=== PATIENT | male | born 1945 | race Caucasian/White ===

== ENCOUNTER 2018-06-15 13:14 | Emergency (ER) | payer MEDICARE ==
[2018-06-15 13:30] VITALS: BP 131/84; PULSE 98; RESP 18; TEMP 98.6
[2018-06-15] MEDS ORDERED: KETOROLAC 30 MG/ML 1 ML VIAL IM STA (14:12)
--- NOTE | 2018-06-15 14:16 | ED ---
Lower Extremity Injury HPI - General Chief Complaint: Extremity Injury, Lower Stated Complaint: leg pain Time Seen by Provider: 06/15/18 13:42 Source: patient Mode of arrival: ambulatory Limitations: no limitations - History of Present Illness Initial Comments: 73-year-old male past medical history of HTN, previous patella fracture in 1972 present today for chief complaint right knee pain. Patient states that he has had increasing right knee pain for the past month, he denies any injury, he denies any swelling, any repetitive movements no warmth or redness or tenderness to palpation of the knee he denies any fever, chills or night sweats. Patient states that he is able to fully range of the right knee without any difficulty however the pain increases with weight bearing and ambulation. Patient states that he has on-and-off pain throughout the night. Patient denies any recent surgeries or dental infections. Patient takes that she takes Tylenol which helps alleviate the pain somewhat. Patient has not an evaluation for than right knee pain or imaging recently. Remainder of ROS negative, patient appears well. Vital signs stable upon arrival. - Related Data Previous Rx's Medication Instructions Recorded Naproxen [Naprosyn] 500 mg PO Q12HR PRN 10 Days #20 tab 06/15/18 Allergies Allergy/AdvReac Type Severity Reaction Status Date / Time No Known Allergies Allergy Verified 06/15/18 13:29 Review of Systems ROS Statement: Those systems with pertinent positive or pertinent negative responses have been documented in the HPI. ROS Other: All systems not noted in ROS Statement are negative. Constitutional: Denies: fever, chills Eyes: Denies: eye pain ENT: Denies: ear pain, throat pain Respiratory: Denies: cough, dyspnea, wheezes, hemoptysis, stridor Cardiovascular: Denies: chest pain, palpitations, dyspnea on exertion Endocrine: Denies: fatigue Gastrointestinal: Denies: abdominal pain, nausea, vomiting, diarrhea, constipation Genitourinary: Denies: urgency, dysuria Musculoskeletal: Reports: arthralgia (right knee pain with ambulation). Denies : back pain Skin: Denies: rash, lesions Neurological: Denies: headache, weakness, numbness, paresthesias, confusion, abnormal gait Past Medical History Past Medical History: Hypertension Additional Past Medical History / Comment(s): fractured right knee cap History of Any Multi-Drug Resistant Organisms: None Reported Additional Past Surgical History / Comment(s): left ring finger surgery Past Psychological History: No Psychological Hx Reported Smoking Status: Former smoker Past Alcohol Use History: Daily Past Drug Use History: None Reported General Exam - General Exam Comments Initial Comments: General: The patient is awake and alert, in no distress, and does not appear acutely ill. Eye: Pupils are equal, round and reactive to light, extra-ocular movements are intact. No nystagmus. There is normal conjunctiva bilaterally. No signs of icterus. Ears, nose, mouth and throat: There are moist mucous membranes and no oral lesions. Cardiovascular: There is a regular rate and rhythm. No murmur, rub or gallop is appreciated. Respiratory: Lungs are clear to auscultation, respirations are non-labored, breath sounds are equal. No wheezes, stridor, rales, or rhonchi. Musculoskeletal: There is no erythema, warmth or soft tissue swelling noted of the right knee. These are equal in appearance bilaterally. Patient is able to fully range the right knee with flexion and extension. Patient denies any pain with these movements. There is palpable crepitus on examination. No noted laxity. Negative anterior and posterior drawer testing. Strength 5/5 at the hip, knees and ankles bilaterally. Sensation intact of the lower extremity equally bilaterally. Dorsalis pedis and radial pulses equal bilaterally 2+. Extensor mechanism is intact. There is no palpable defects of the quadriceps tendon. Parents are soft and compressible. Noted foot drop. Patient complains of pain with ambulation however no noted gait abnormalities Neurological: A&O x 3. CN II-XII intact, There are no obvious motor or sensory deficits. Coordination appears grossly intact. Speech is normal. Skin: Skin is warm and dry and no rashes or lesions are noted. Psychiatric: Cooperative, appropriate mood & affect, normal judgment. Limitations: no limitations Course Vital Signs 06/15/18 13:26 Temperature 98.6 F Pulse Rate 98 Respiratory 18 Rate Blood Pressure 131/84 O2 Sat by Pulse 95 Oximetry Medical Decision Making - Medical Decision Making X-rays revealed no acute fracture dislocation the right knee there is moderate tricuspid mental arthritis grease in the medial compartment as well as a 1.5cm intra-articular loose body. At this time feel the intra-articular loose body is the cause of the pain in the right knee. There are no signs of symptoms concerning for septic joint this time. There is no noted effusion on x-ray. Findings discussed with Dr. Alvarado in detail who reviewed all imaging. At this time we feel patient is stable for discharge with orthopedic surgery follow-up. Patient was placed in a knee immobilizer, and given Rice instruction. In addition patient was given a prescription for Naprosyn for pain management. All findings were discussed with patient detail. He verbalized understanding. Patient is understanding that he has to make an appointment with orthopedic surgery in the next 1-2 days. Return parameters discussed in detail patient verbalizes understanding. Patient discharged in stable condition after discussing the case in detail with Dr. Alvarado. Disposition Clinical Impression: Right knee pain, Tricompartment osteoarthritis of right knee Disposition: HOME SELF-CARE Condition: Good Instructions: Osteoarthritis (ED) Additional Instructions: Please use medication as discussed. Please follow-up with family doctor in the next 2 days. Please see orthopedic surgery in the next week. Please return to emergency room if the symptoms increase or worsen or for any other concerns. Prescriptions: Naproxen [Naprosyn] 500 mg PO Q12HR PRN 10 Days #20 tab PRN Reason: Pain Is patient prescribed a controlled substance at d/c from ED?: No Referrals: Nacho Harmon MD [Primary Care Provider] - 1-2 days José Luis Rider DO [Doctor of Osteopathic Medicine] - 1-2 days Time of Disposition: 15:11
--- NOTE | 2018-06-15 14:45 | XR ---
EXAMINATION TYPE: XR knee complete RT DATE OF EXAM: 06/15/2018 CLINICAL HISTORY: Right knee pain for one month TECHNIQUE: Three views of the right knee are obtained. COMPARISON: None. FINDINGS: There is no acute fracture/dislocation evident in right knee. Tricompartmental spaces demo nstrate marginal osteophytes, joint space narrowing and subchondral sclerosis greatest within medial compartment with near [id number] articulation. Intra-articular 1.5 cm loose body is seen the anteri or aspect of the intercondylar notch. The overlying soft tissue appears unremarkable. Atherosclerosis is seen of the femoral artery and its branches. IMPRESSION: There is no acute fracture or dislocation in the right knee. Moderate tricompartmental a rthropathy greatest in the medial compartment and 1.5 cm intra-articular loose body.
== END 2018-06-15 15:31 | disposition home or self-care (01) ==
LOC: EC 13:14
DX: M17.11 Unilateral primary osteoarthritis, right knee (principal); Z87.81 Personal history of (healed) traumatic fracture; Z87.891 Personal history of nicotine dependence
CPT/HCPCS: 73562; 99283; 96372; L1830; J1885

== ENCOUNTER → 2018-09-06 | Outpatient (CLI) | payer MEDICARE ==
[2018-09-06 13:11] LABS: HCT 44.8 % (39.0-53.0); HGB 14.7 gm/dL (13.0-17.5); MCH 28.7 pg (25.0-35.0); MCHC 32.9 g/dL (31.0-37.0); MCV 87.3 fL (80.0-100.0); Mean Platelet Volume 7.2; Platelet Count 357 k/uL (150-450); RBC 5.13 m/uL (4.30-5.90); RDW 13.6 % (11.5-15.5)
[2018-09-06 13:20] LABS: INR 0.9 (<1.2); Partial Thromboplastin Time 22.5 sec (22.0-30.0); Prothrombin Time 9.5 sec (9.0-12.0)
[2018-09-06 13:27] LABS: Albumin 4.5 g/dL (3.5-5.0); Calcium 9.9 mg/dL (8.4-10.2); Potassium 5.3 mmol/L (3.5-5.1); Total Bilirubin 0.9 mg/dL (0.2-1.3); Total Protein 7.3 g/dL (6.3-8.2)
[2018-09-06 13:48] LABS: Appearance,Urine Clear (Clear); Bilirubin,Urine Negative (Negative); Blood,Urine Negative (Negative); Color,Urine Light Yellow; Glucose,Urine (UA) Negative (Negative); Ketones,Urine Negative (Negative); Leukocyte Esterase,Urine Negative (Negative); Nitrite,Urine Negative (Negative); Protein,Urine Negative (Negative); Specific Gravity,Urine 1.005 (1.001-1.035); Urobilinogen,Urine <2.0 mg/dL (<2.0)
== END | disposition home or self-care (01) ==
LOC: LABPAT 11:49
PROVIDERS: ATTEND Orthopaedic Surgery
DX: Z01.818 Encounter for other preprocedural examination (principal); Z01.812 Encounter for preprocedural laboratory examination
CPT/HCPCS: 80053; 81003; 85027; 85610; 85730; 87070; 93005

== ENCOUNTER 2018-10-04 07:00 | Inpatient (IN) | payer MEDICARE ==
[2018-09-28 09:27] VITALS: BMI 31.3
[~2018-10-04 07:00] MED LIST: ACETAMINOPHEN TAB 500 MG TAB PO ONE; DEXAMETHASONE SOD PHOSPHATE 10 MG/ML 1 ML VIAL IV ONE; LIDOCAINE 1% 20 ML VIAL (10MG/ML) FOR IV START INTRADERMA PRN; MELOXICAM 7.5 MG TAB PO ONE; ONDANSETRON 4 MG/2 ML VIAL IVP ONE; ROPIVACAINE 246.25 MG, EPINEPHrine 0.5 MG, KETOROLAC 30 MG, cloNIDine HCL/PF 80 MCG, WA... MISCELLANE ONE; TRANEXAMIC ACID 1,000 MG in SODIUM CHLORIDE 0.9% 100 ML IVPB ONE; ceFAZolin IN SWFI 2 GM/20 ML SYRINGE IVP ONE
[2018-10-04] MEDS: LACTATED RINGERS 1,000 ML IV SCH (08:03)
[2018-10-04] MEDS ORDERED: MIDAZOLAM 2 MG/2 ML VIAL IV ONE (08:16)
[2018-10-04] MEDS ORDERED: BISACODYL 10 MG SUPP RECTAL PRN (09:02)
[2018-10-04] MEDS ORDERED: DIAZEPAM 5 MG TAB PO PRN (09:02)
[2018-10-04] MEDS ORDERED: HYDROcodone/APAP 5-325MG 1 EACH TAB PO PRN ×2 (09:02)
[2018-10-04] MEDS ORDERED: NA PHOS,M-B/NA PHOS,DI-BA 133 ML ENEMA RECTAL PRN (09:02)
[2018-10-04] MEDS ORDERED: HYDROmorphone 0.5 MG/0.5 ML SYRINGE IVP PRN ×3 (09:02)
[2018-10-04] MEDS ORDERED: hydrOXYzine PAMOATE 25 MG CAP PO PRN (09:02)
[2018-10-04] MEDS ORDERED: NALOXONE 0.4 MG/ML 1 ML VIAL IV PRN (09:02)
[2018-10-04] MEDS ORDERED: ONDANSETRON 4 MG/2 ML VIAL IVP PRN (09:02)
[2018-10-04] MEDS ORDERED: MAGNESIUM HYDROXIDE 2,400 MG/10 ML CUP PO PRN (09:02)
[2018-10-04] MEDS ORDERED: SODIUM CHLORIDE 0.9% 100 ML BAG ONE (09:19)
[2018-10-04] MEDS ORDERED: PHENYLEPHRINE-0.9% NACL SYG 1 MG/10 ML SYRINGE ONE (09:19)
[2018-10-04] MEDS ORDERED: TRANEXAMIC ACID 1,000 MG/10 ML VIAL ONE (09:19)
[2018-10-04] MEDS ORDERED: PROPOFOL 10 MG/ML 20 ML VIAL IV ONE (09:19)
[2018-10-04] MEDS ORDERED: fentaNYL (PF) 50 MCG/ML 2 ML AMP ONE (09:19)
[2018-10-04] MEDS ORDERED: MIDAZOLAM 2 MG/2 ML VIAL ONE (09:19)
[2018-10-04] MEDS ORDERED: ceFAZolin 3,000 MG in SODIUM CHLORIDE 0.9% IRRIGATIO 3,000 ML IRRIGATION ONE (09:23)
[2018-10-04] MEDS ORDERED: ROPIVACAINE 1,100 MG, SODIUM CHLORIDE 0.9% 500 ML 330 ML MISCELLANE PRN ×2 (09:58)
--- NOTE | 2018-10-04 10:00 | P.ONQ ---
Anesthesiology Proc Note - PNB - Peripheral Nerve Block Performed Right Adductor Canal Infusion Time Out Performed: Yes Procedure Start Time: 08:17 Procedure Stop Time: :30 Indication: Acute Post-Operative Pain, Requested by physician Sedation Type: Sedate with meaningful contact maintained Preparation: Sterile Dressing Position: Supine Catheter: Indwelling Needle Types: On-Q Needle Size: 100mm (4") Needle Gauge: 21 Technique: Ultrasound Injectate: 0.5% Ropivacaine (see comment for volume) (ropi .5% 20cc) Blood Aspirated: No Pain Paresthesia on Injection Noted: No Resistance on Injection: Normal Events: Uneventful and Well Tolerated
[2018-10-04] MEDS ORDERED: LACTATED RINGERS 1,000 ML IV ONE (10:05)
--- NOTE | 2018-10-04 10:41 | P.OP ---
Date of Procedure: 10/04/18 Preoperative Diagnosis: Severe osteoarthritis right knee Postoperative Diagnosis: Severe osteoarthritis right knee Procedure(s) Performed: Right total knee arthroplasty Implants: [employer] II CR Oxinium cruciate retaining femoral component size 7, right [employer] right nonporous tibial baseplate size 6 [employer] II, XLPE Deep Dished articular insert, size 11 mm, Size 5 -6 right [employer] BCS resurfacing oval patellar component, 32 mm All components were cemented using Pal[place]os R bone cement.. The articulation is Oxinium on polyethylene. Anesthesia: spinal Surgeon: Caden Rider Civil Clerk #1: Denise Ray Estimated Blood Loss (ml): 50 Pathology: other (Bone and cartilage) Condition: stable Disposition: PACU Indications for Procedure: After failure of conservative treatment we discussed the surgical and nonsurgical treatment options at length. Patient wishes to proceed with a total knee arthroplasty. Complications specific to this procedure were discussed at length, including but not limited to infection, bleeding, stiffness , and nerve injury. Patient is aware of all these complications and informed consent was obtained Operative Findings: The operative findings are consistent with severe osteoarthritis the right knee Description of Procedure: Patient was seen in the preoperative area consent was reviewed and operative site was marked with a skin marker. An adductor canal pain catheter was placed by anesthesia in the preoperative area. Patient was then brought to the operating room and given preoperative antibiotics intravenously. A spinal anesthetic was administered by the anesthesia department. A tourniquet was placed on the upper thigh and the lower extremity was prepped and draped in usual sterile fashion. A gram of transexamic acid was given. A universal timeout was then performed which confirmed the patient's name, surgical site, ALLERGIES, and consent. The lower extremity was then exsanguinated and tourniquet was inflated to 250 mmHg. A standard and anterior midline approach to the knee was performed. The skin and subcutaneous tissue was dissected down to the patellar tendon. A medial parapatellar arthrotomy was then performed. The knee was then extended, the patellar was everted, and the knee was again flexed. Anterior horns of both menisci were excised, and a release was performed to the posterior medial aspect of the knee. On gross visual inspection, there was complete loss of articular cartilage in the medial and patellofemoral joint spaces. There was also significant cartilage damage in the lateral compartment. There were multiple periarticular osteophytes which were then removed with a Ronguer. The femoral canal was then opened with the appropriate drill, and the intramedullary femoral cutting guide was then placed and set for 5 of valgus. The distal femoral cutting block was then pinned in place, and the distal femur was then cut. The cutting block was then removed and the cut was checked for flatness. Next, the sizing guide was then placed and set for 3 external rotation based off of the epicondylar axis and Whitesides line. After the femur was sized, the appropriate 4-in-1 cutting block was then pinned in place. The anterior condyles were cut without notching. The posterior and chamfer cuts were performed while protecting the collateral ligaments. The cutting block was then removed, and the femoral canal was plugged with autologous bone. Attention was then directed to the tibia. The remaining ACL was removed with a Ronguer, and the tibia was then gently subluxed forward with a large bent knee retractor. Any remaining menisci was excised. The posterior lateral corner was cauterized in order to cauterize the lateral geniculate artery. The extra medullary tibial cutting guide was then placed, set for the appropriate rotation , slope, and depth of resection. The proximal tibia cutting guide was then pinned in place. Proximal tibia was then cut and sized. Next trials were then placed with the appropriate-sized insert. The knee was able to fully extend and flex to 130 and was stable throughout all range of motion. The knee was then extended, patella everted. Patella was then measured, and then using an osteotomy guide, the patella was cut at the appropriate level. The patella was then measured and drilled and the patella trial was then placed. The knee was then taken through range of motion with the patella trial and the patella tracked normally. The knee was then extended patella trial was then removed and the patella was everted. Knee was then flexed and lug holes were drilled through the femoral trial and the femoral trial was then removed. The tibial was then exposed, and the tibial broach guide was then pinned in place after it was set for the appropriate rotation to allow for the most coverage without overhang. The tibia was then reamed and broached. The cut surfaces of bone were then irrigated with pulsatile lavage. The posterior structures were injected with the ropivacaine solution. The knee was also irrigated with Irrisept solution. The components were then opened, the cement was mixed, and the components were then cemented in place. The cement was allowed to harden with the knee in full extension. While the cement was hardening, the remaining soft tissues were then injected with a ropivacaine solution, which consisted of 246.25 mg of ropivacaine, 0.5 mg of epinephrine, 30 mg of Toradol, 80 g of clonidine, and 48.45 mL of sterile water, for a total of 100 mL of fluid injected. After the cemented hardened. The tourniquet was released, and hemostasis was obtained. A second gram of transexamic acid was given. The knee was again irrigated. The knee was again taken through range of motion and found to be stable throughout all range of motion of 0-130 , and the patella tracked normally. The fascia was then closed with #2 strata fix suture. The subcutaneous tissue was closed with 3-0 Vicryl and 3-0 strata fix. Dermabond glue was used for the skin and placed with the knee in flexion. The patient was placed in a sterile silver dressing. Patient was then transferred to recovery room in stable condition. The entry level administrative assistant ALEXIA Anaya was required due the complexity surgery and the need for a skilled operating room surgical technician. She assisted in positioning, draping, retraction, and closure of the wound.
--- NOTE | 2018-10-04 11:40 | XR ---
EXAMINATION TYPE: XR knee limited RT DATE OF EXAM: 10/04/2018 COMPARISON: 06/15/2018 HISTORY: 73-year-old male evaluation for postoperative abnormality and alignment TECHNIQUE: 2 views FINDINGS: Images show placement of right total knee are requested. Both distal femoral and proximal tibial comp onents of the prosthesis appear well seated without periprosthetic fracture. There is chronic fragmen tation of the tibial tuberosity probably representing sequela of prior Willis-Schlatter's disease. An terior soft tissue swelling with soft tissue air as well as intra-articular air or joint effusion com patible with recent operation. Vascular calcifications are present. IMPRESSION: Uncomplicated postoperative appearance right total knee arthroplasty. Suspect chronic sequela of prio r [place]-Schlatter's disease.
[2018-10-04] MEDS: SODIUM CHLORIDE 0.9% 1,000 ML IV SCH (17:38)
[2018-10-04] MEDS: ceFAZolin IN SWFI 2 GM/20 ML SYRINGE IVP SCH (18:35)
[2018-10-04 20:33] VITALS: RESP 16
[2018-10-04] MEDS ORDERED: SENNOSIDES-DOCUSATE SODIUM 1 EACH TAB PO SCH (21:00)
[2018-10-04] MEDS: ASPIRIN 325 MG TAB PO SCH (21:33)
--- NOTE | 2018-10-04 22:56 | P.CONS ---
History of Present Illness - Reason for Consult Consult date: 10/04/18 Medical management of hypertension - Chief Complaint Elective right total knee arthroplasty - History of Present Illness Patient is a 73-year-old male with a known history of hypertension, osteoarthritis and previous history of smoking as well as alcohol use every other day, 6 beers per day was admitted to the hospital for elective right total knee arthroplasty. Patient does have a history of fractured patella previously. Patient tolerated the procedure very well. Currently denied any complaints of knee pain. No chest pain or shortness of breath. No nausea vomiting or abdominal pain. No headache or dizziness or lightheadedness. No other acute issues currently. Patient's blood pressure was elevated post surgery. Review of Systems Constitutional: Patient denies any fever or chills . No generalized weakness or weight loss. Abdomen: Patient denied nausea vomiting and diarrhea and abdominal pain. Cardiovascular: Patient denies any chest pain or short of breath no palpitations. Respiratory: patient denied any cough is from production. No shortness of breath Neurologic: Patient denied any numbness or tingling headache. Musculoskeletal: Patient denies any complaints of joint swelling or deformity. Skin: Negative Psychiatric: Negative Endocrine: No heat or cold intolerance. No recent weight gain. Genitourinary: No dysuria or hematuria. All other 14 point ROS negative except the above Past Medical History Past Medical History: Hypertension, Osteoarthritis (OA) Additional Past Medical History / Comment(s): fractured right knee cap History of Any Multi-Drug Resistant Organisms: None Reported Past Surgical History: Orthopedic Surgery Additional Past Surgical History / Comment(s): left ring finger surgery, CATARACT SURGERY WITH IMPLANT Past Anesthesia/Blood Transfusion Reactions: No Reported Reaction Smoking Status: Former smoker - Past Family History Mother Family Medical History: No Reported History Brother(s) Family Medical History: No Reported History Medications and Allergies Home Medications Medication Instructions Recorded Confirmed Type Naproxen [Naprosyn] 500 mg PO Q12HR PRN 10 Days #20 tab 06/15/18 10/04/18 Rx Aspirin 81 mg PO DAILY 09/28/18 10/04/18 History Benazepril [Lotensin] 20 mg PO DAILY 09/28/18 10/04/18 History Hydrochlorothiazide [Hydrodiuril] 25 mg PO DAILY 09/28/18 10/04/18 History NIFEdipine [NIFEdipine ER] 90 mg PO DAILY 09/28/18 10/04/18 History Allergies Allergy/AdvReac Type Severity Reaction Status Date / Time No Known Allergies Allergy Verified 10/04/18 18:40 Physical Exam Vitals: Vital Signs Temp Pulse Pulse Resp BP Pulse Ox 10/04/18 14:05 88 16 144/76 93 L 10/04/18 13:24 97.3 F L 80 16 155/89 94 L 10/04/18 12:32 76 16 144/67 94 L 10/04/18 12:15 78 16 135/68 94 L 10/04/18 12:00 76 16 144/70 94 L 10/04/18 11:45 78 18 147/70 94 L 10/04/18 11:32 78 16 126/59 95 10/04/18 11:16 97.3 F L 83 16 144/63 95 10/04/18 08:35 76 16 142/79 98 10/04/18 07:46 98.1 F 86 16 176/89 96 Intake and Output 10/04/18 10/04/18 10/04/18 06:59 14:59 22:59 Intake Total 1301 Output Total 50 Balance 1251 Intake: IV 1301 Output: Estimated Blood Loss 50 PHYSICAL EXAMINATION: Patient is lying in the bed comfortably, no acute distress, awake alert and oriented.. HEENT: Normocephalic. Neck is supple. Pupils reactive. Nostrils clear. Oral cavity is moist. Ears reveal no drainage. Neck reveals no JVD, carotid bruits, or thyromegaly. CHEST EXAMINATION: Trachea is central. Symmetrical expansion. Lung brito clear to auscultation and percussion. CARDIAC: Normal S1, S2 with no gallops. No murmurs ABDOMEN: Soft. Bowel sounds normal. No organomegaly. No abdominal bruits. Extremities: reveal no edema. No clubbing or cyanosis Neurologically awake, alert, oriented x3 with well-coordinated movements. No focal deficits noted Skin: No rash or skin lesions. Psychiatric: Coperative. Nonsuicidal Musculoskeletal: No joint swelling or deformity. Right knee surgical site intact.. Results CBC & Chem 7: 10/04/18 08:00 Assessment and Plan Assessment: Status post right total knee arthroplasty. Postoperative day 0 Uncontrolled hypertension. Osteoarthritis Alcohol use 6 beers every other day DVT prophylaxis. Plan: Patient will be converted on pain medications and bowel regimen. Patient will be started back on home blood pressure medications including lisinopril, hydrochlorothiazide and nifedipine. Titrate as needed. Continue with incentive spirometry and encourage ambulation. DVT prophylaxis with aspirin twice a day as per orthopedics. Alcohol abuse has been counseled extensively. Further recommendations based on the clinical course. We will continue to follow with you. Thank you for your consult.
[2018-10-04] MEDS: LISINOPRIL 20 MG TAB PO SCH (23:31)
[2018-10-05] MEDS: ceFAZolin IN SWFI 2 GM/20 ML SYRINGE IVP SCH
[2018-10-05] MEDS: SODIUM CHLORIDE 0.9% 1,000 ML IV SCH (00:02)
[2018-10-05 07:37] VITALS: BP 161/91; PULSE 79; TEMP 98
[2018-10-05 08:12] LABS: Basophils % (A) 0 %; Eosinophils # (A) 0.1 k/uL (0-0.7); Eosinophils % (A) 1 %; HCT 37.2 % (39.0-53.0); HGB 12.1 gm/dL (13.0-17.5); Lymphocytes # (A) 1.8 k/uL (1.0-4.8); Lymphocytes % (A) 20 %; MCH 29.2 pg (25.0-35.0); MCHC 32.6 g/dL (31.0-37.0); MCV 89.6 fL (80.0-100.0); Mean Platelet Volume 6.7; Monocytes # (A) 0.6 k/uL (0-1.0); Monocytes % (A) 7 %; Neutrophils # (A) 6.4 k/uL (1.3-7.7); Neutrophils % (A) 71 %; Platelet Count 291 k/uL (150-450); RBC 4.15 m/uL (4.30-5.90); RDW 13.4 % (11.5-15.5)
[2018-10-05 08:29] LABS: Potassium 4.4 mmol/L (3.5-5.1)
[2018-10-05] MEDS ORDERED: NIFEdipine XL 90 MG TAB.ER.24 PO SCH (09:00)
[2018-10-05] MEDS ORDERED: MELOXICAM 7.5 MG TAB PO SCH (09:00)
[2018-10-05] MEDS ORDERED: HYDROCHLOROTHIAZIDE 25 MG TAB PO SCH (09:00)
[2018-10-05] MEDS: LACTATED RINGERS 1,000 ML IV SCH (09:30)
--- NOTE | 2018-10-05 09:31 | P.DS ---
Providers Date of admission: 10/04/18 07:11 Expected date of discharge: 10/05/18 Attending physician: Caden Rider Consults: 10/04/18 09:02 Consult Physician Routine Consulting Provider: Gama Anderson Consult Reason/Comments: medical management Do you want consulting provider notified?: Already Contacted Primary care physician: Eden Vallebal - Discharge Diagnosis(es) (1) Osteoarthritis of right knee Current Visit: Yes Status: Acute (2) Status post total right knee replacement Current Visit: Yes Status: Acute Hospital Course: This is a 73-year-old male with known history of degenerative arthritis of the right knee. The patient presents for evaluation. After discussion and consideration patient elects to proceed with total knee arthroplasty. The patient is seen preoperatively by Dr. Rider and medically cleared for surgery by their primary care physician. Patient is admitted to [facility] on 10/04/2018 for total knee arthroplasty. The procedures performed without complication or sequelae. The patient is doing well postoperatively. Labs and vital signs are stable on day of discharge. On day of discharge patient's knee incision is healing well. There is minimal erythema. There is no drainage noted at this time. There is minimal soft tissue swelling to the knee. Patient has full foot and ankle motion without difficulty or pain. Neurovascular status to the right lower extremity is intact. Patient is discharged home in good condition. Please see med rec for accurate list of home medications. Plan - Discharge Summary Discharge Rx Participant: No New Discharge Prescriptions: New Aspirin 325 mg PO BID #60 tab HYDROcodone/APAP 5-325MG [[place] 5-325] 1 - 2 tab PO Q6HR PRN #56 tab PRN Reason: Pain Sennosides [Senokot] 1 tab PO BID #60 tablet No Action Naproxen [Naprosyn] 500 mg PO Q12HR PRN 10 Days #20 tab PRN Reason: Pain Hydrochlorothiazide [Hydrodiuril] 25 mg PO DAILY NIFEdipine [NIFEdipine ER] 90 mg PO DAILY Benazepril [Lotensin] 20 mg PO DAILY Aspirin 81 mg PO DAILY Discharge Medication List Naproxen [Naprosyn] 500 mg PO Q12HR PRN 10 Days #20 tab 06/15/18 [Rx] Aspirin 81 mg PO DAILY 09/28/18 [History] Benazepril [Lotensin] 20 mg PO DAILY 09/28/18 [History] Hydrochlorothiazide [Hydrodiuril] 25 mg PO DAILY 09/28/18 [History] NIFEdipine [NIFEdipine ER] 90 mg PO DAILY 09/28/18 [History] Aspirin 325 mg PO BID #60 tab 10/05/18 [Rx] HYDROcodone/APAP 5-325MG [[place] 5-325] 1 - 2 tab PO Q6HR PRN #56 tab 10/05/18 [ Rx] Sennosides [Senokot] 1 tab PO BID #60 tablet 10/05/18 [Rx] Follow up Appointment(s)/Referral(s): Caden Rider DO [Doctor of Osteopathic Medicine] - 2 Weeks Activity/Diet/Wound Care/Special Instructions: Weightbearing as tolerated with a walker. CPM 5-6h daily. Leave dressing intact. May be removed by home care nurse or by patient in 10 days. May shower with dressing on. Please follow up with [facility] and call with any questions or concerns, . Discharge Disposition: HOME WITH HOME HEALTH SERVICES
[2018-10-05] MEDS: ASPIRIN 325 MG TAB PO SCH (09:34)
[2018-10-05] MEDS: LISINOPRIL 20 MG TAB PO SCH (09:34)
--- NOTE | 2018-10-05 10:48 | P.PN ---
Progress Note - Text Progress Note Date: 10/05/18 The patient is status post right adductor canal catheter placement. The catheter was placed for postoperative pain control, status post total [Right Knee] arthroplasty. Ropivacaine 0.2% is infusing at[ 5] mLs per hour. The patient has no complaints of[ right] lower extremity numbness or weakness. Patient's VAS score is[ 4]-10. Assessment: Patient's adductor canal catheter is in place and working appropriately. Plan: continue infusion and adjust it as needed.
--- NOTE | 2018-10-05 23:18 | P.PN ---
Subjective Progress Note Date: 10/05/18 Principal diagnosis: Right total knee arthroplasty Patient is a 73-year-old male with a known history of hypertension, osteoarthritis and previous history of smoking as well as alcohol use every other day, 6 beers per day was admitted to the hospital for elective right total knee arthroplasty. Patient does have a history of fractured patella previously. Patient tolerated the procedure very well. Currently denied any complaints of knee pain. No chest pain or shortness of breath. No nausea vomiting or abdominal pain. No headache or dizziness or lightheadedness. No other acute issues currently. Patient's blood pressure was elevated post surgery. 10/05/2018 Patient denied any complaints of chest pain or shortness breath. Right knee pain is controlled with pain medications. No fever no chills. No nausea vomiting or abdominal pain. Patient is able to ambulate currently. Otherwise patient is medically stable to be discharged. Current medications reviewed and discharge medication reconciliation was done. Objective - Vital Signs Vital signs: Vital Signs Temp 98.0 F 10/05/18 07:00 Pulse 79 10/05/18 07:00 Resp 16 10/05/18 07:00 BP 161/91 10/05/18 07:00 Pulse Ox 94 L 10/05/18 07:00 Intake & Output 10/04/18 10/05/18 10/05/18 18:59 06:59 18:59 Intake Total 1301 650 240 Output Total 50 Balance 1251 650 240 Intake: IV 1301 Intake, IV Titration 650 Amount Sodium Chloride 0.9% 1, 650 000 ml @ 65 mls/hr IV . [id number] [facility] Rx#:[id number] Oral 240 Output: Estimated Blood Loss 50 - Exam PHYSICAL EXAMINATION: Patient is lying in the bed comfortably, no acute distress, awake alert and oriented.. HEENT: Normocephalic. Neck is supple. Pupils reactive. Nostrils clear. Oral cavity is moist. Ears reveal no drainage. Neck reveals no JVD, carotid bruits, or thyromegaly. CHEST EXAMINATION: Trachea is central. Symmetrical expansion. Lung brito clear to auscultation and percussion. CARDIAC: Normal S1, S2 with no gallops. No murmurs ABDOMEN: Soft. Bowel sounds normal. No organomegaly. No abdominal bruits. Extremities: reveal no edema. No clubbing or cyanosis Neurologically awake, alert, oriented x3 with well-coordinated movements. No focal deficits noted Skin: No rash or skin lesions. Psychiatric: Coperative. Nonsuicidal Musculoskeletal: No joint swelling or deformity. Normal range of motion. Right knee surgical site is intact. - Labs CBC & Chem 7: 10/05/18 07:28 10/05/18 07:28 Labs: Abnormal Lab Results - Last 24 Hours (Table) 10/05/18 10/05/18 Range/Units 07:28 07:28 RBC 4.15 L (4.30-5.90) m/uL Hgb 12.1 L (13.0-17.5) gm/dL Hct 37.2 L (39.0-53.0) % Sodium 136 L (137-145) mmol/L BUN 22 H (9-20) mg/dL Assessment and Plan Assessment: Status post right total knee arthroplasty. Postoperative day 1 Uncontrolled hypertension. Controlled now. Osteoarthritis Alcohol use 6 beers every other day DVT prophylaxis. Plan: Patient will be converted on pain medications and bowel regimen. Patient is started back on home blood pressure medications including lisinopril, hydrochlorothiazide and nifedipine. Titrate as needed. Continue with incentive spirometry and encourage ambulation. DVT prophylaxis with aspirin twice a day as per orthopedics. Alcohol abuse has been counseled extensively. Further recommendations based on the clinical course. Patient is being discharged home today. Time with Patient: Greater than 30
== END 2018-10-05 14:25 | disposition home health service (06) | DRG 470 ==
LOC: 2ORMAIN 07:11 → 4SSUR 16:33
PROVIDERS: ADMIT Orthopaedic Surgery; ATTEND Orthopaedic Surgery
PROC: 0SRC069 Replacement of Right Knee Joint with Oxidized Zirconium on Polyethylene Synthetic Substitute, Cemented, Open Approach (ICD-10-PCS; principal; 2018-10-04 09:20)
DX: M17.11 Unilateral primary osteoarthritis, right knee (principal); I10 Essential (primary) hypertension; M16.11 Unilateral primary osteoarthritis, right hip; Z79.82 Long term (current) use of aspirin; Z79.899 Other long term (current) drug therapy; Z87.891 Personal history of nicotine dependence
CPT/HCPCS: 80048; 84132; 85025; 88300

== ENCOUNTER → 2019-05-24 | Outpatient (CLI) | payer MEDICARE ==
[2019-05-24 11:29] LABS: Albumin 4.4 g/dL (3.5-5.0); Calcium 9.7 mg/dL (8.4-10.2); Potassium 5.3 mmol/L (3.5-5.1); Total Bilirubin 1.1 mg/dL (0.2-1.3); Total Protein 7.6 g/dL (6.3-8.2)
[2019-05-24 11:42] LABS: Appearance,Urine Clear (Clear); Bilirubin,Urine Negative (Negative); Blood,Urine Negative (Negative); Color,Urine Light Yellow; Glucose,Urine (UA) Negative (Negative); Ketones,Urine Negative (Negative); Leukocyte Esterase,Urine Negative (Negative); Nitrite,Urine Negative (Negative); PH, Urine 6.5 (5.0-8.0); Protein,Urine Negative (Negative); Specific Gravity,Urine 1.009 (1.001-1.035); Urobilinogen,Urine <2.0 mg/dL (<2.0)
[2019-05-24 11:43] LABS: INR 0.9 (<1.2); Partial Thromboplastin Time 23.6 sec (22.0-30.0); Prothrombin Time 9.6 sec (9.0-12.0)
[2019-05-24 11:57] LABS: HCT 43.5 % (39.0-53.0); HGB 14.3 gm/dL (13.0-17.5); MCH 30.1 pg (25.0-35.0); MCV 91.4 fL (80.0-100.0); Mean Platelet Volume 6.4; Platelet Count 368 k/uL (150-450); RBC 4.76 m/uL (4.30-5.90); RDW 13.9 % (11.5-15.5); WBC 7.4 k/uL (3.8-10.6)
== END | disposition home or self-care (01) ==
LOC: LABPAT 10:00
PROVIDERS: ATTEND Orthopaedic Surgery
DX: Z01.818 Encounter for other preprocedural examination (principal); Z01.812 Encounter for preprocedural laboratory examination; Z79.01 Long term (current) use of anticoagulants
CPT/HCPCS: 36415; 80053; 81003; 85027; 85610; 85730; 87070; 93005

== ENCOUNTER 2019-05-31 07:00 | Inpatient (IN) | payer MEDICARE ==
[2019-05-26 09:57] VITALS: BMI 30.4
--- NOTE | 2019-05-30 11:01 | CONS ---
CONSULTATION Mr. Martinez is a 74-year-old gentleman who is seen for preop evaluation. Patient is undergoing hip surgery. The patient was seen about 6 months ago for cardiac evaluation when at that time patient underwent knee surgery without any problem. The patient was evaluated with a stress test and echocardiogram at that time and revealed normal left ventricular systolic function. The patient's blood pressure medications were adjusted and he has been doing fairly well since then. The patient is physically and functionally active. He can climb the flight of stairs slowly and walk 3 to 4 blocks. There are no symptoms of congestive cardiac failure or symptoms suggestive of angina. There is no prior history of stroke or chronic renal failure. PAST MEDICAL HISTORY: Past medical history is unremarkable. HOME MEDICATIONS: Patient's home medications include nifedipine 60 mg daily, benazepril 10 mg daily, hydrochlorothiazide 25 mg daily. PHYSICAL EXAMINATION: Physical examination at present reveals a 74-year-old gentleman who does not appear to be in any acute distress. The patient's blood pressure is 146/78 mmHg. Head/ENT examination is negative. Neck is supple. There is no increase in jugular venous pressure. Both the carotid pulses are felt. There is no bruit. Chest is symmetrical. HEART: The PMI is not felt. First and second heart sounds are normal. There is no evidence of any murmur. Lungs are clinically clear to auscultation and percussion. Abdomen is negative. EXTREMITIES: Peripheral pulsations are 2+. EKG was done a couple of days ago which was unremarkable without any evidence of acute ischemia. FINAL IMPRESSION: This patient has a history of hypertension, which is fairly well controlled. The patient does not have any symptoms suggestive of unstable angina or congestive cardiac failure. There is no history of diabetes. The patient had a recent stress test 6 months ago which was normal. In view of that, the patient is considered at acceptable risk for surgery. We will recommend to continue the patient's blood pressure medications in the perioperative period and appropriate anticoagulation is suggested. MMODL / IJN: [id number] /
[~2019-05-31 07:00] MED LIST changes: +GABAPENTIN 300 MG CAP PO ONE; +HYDROmorphone 0.5 MG/0.5 ML SYRINGE IVP PRN; -LIDOCAINE 1% 20 ML VIAL (10MG/ML) FOR IV START INTRADERMA PRN; +MIDAZOLAM 2 MG/2 ML VIAL IV PRN; -ceFAZolin IN SWFI 2 GM/20 ML SYRINGE IVP ONE
[2019-05-31] MEDS ORDERED: LIDOCAINE 1% 20 ML VIAL (10MG/ML) FOR IV START INTRADERMA ONE (10:33)
[2019-05-31] MEDS: LACTATED RINGERS 1,000 ML IV SCH (10:34)
[2019-05-31] MEDS ORDERED: ONDANSETRON 4 MG/2 ML VIAL IVP PRN (11:45)
[2019-05-31] MEDS ORDERED: hydrOXYzine PAMOATE 25 MG CAP PO PRN (11:45)
[2019-05-31] MEDS ORDERED: MAGNESIUM HYDROXIDE 2,400 MG/10 ML CUP PO PRN (11:45)
[2019-05-31] MEDS ORDERED: HYDROcodone/APAP 5-325MG 1 EACH TAB PO PRN ×2 (11:45)
[2019-05-31] MEDS ORDERED: DIAZEPAM 5 MG TAB PO PRN (11:45)
[2019-05-31] MEDS ORDERED: HYDROmorphone 0.5 MG/0.5 ML SYRINGE IVP PRN ×3 (11:45)
[2019-05-31] MEDS ORDERED: NALOXONE 0.4 MG/ML 1 ML VIAL IV PRN (11:45)
[2019-05-31] MEDS ORDERED: HEPARIN SODIUM,PORCINE 10,000 UNIT/ML 1 ML VIAL ONE (11:51)
[2019-05-31] MEDS ORDERED: PHENYLEPHRINE-0.9% NACL SYG 1 MG/10 ML SYRINGE ONE (11:51)
[2019-05-31] MEDS ORDERED: SODIUM CHLORIDE 0.9% 100 ML BAG ONE (11:51)
[2019-05-31] MEDS ORDERED: SODIUM CHLORIDE 0.9% IRRIG 1,000 ML BTL IRRIGATION ONE (11:51)
[2019-05-31] MEDS ORDERED: TRANEXAMIC ACID 1,000 MG/10 ML VIAL ONE (11:51)
[2019-05-31] MEDS ORDERED: fentaNYL (PF) 50 MCG/ML 2 ML AMP ONE (11:51)
[2019-05-31] MEDS ORDERED: LIDOCAINE 1% INJ 10MG/ML (20 ML MDV) ONE (11:51)
[2019-05-31] MEDS ORDERED: MIDAZOLAM 2 MG/2 ML VIAL ONE (11:51)
[2019-05-31] MEDS ORDERED: PROPOFOL 10 MG/ML 20 ML VIAL IV ONE (11:51)
[2019-05-31] MEDS ORDERED: ceFAZolin 3,000 MG in SODIUM CHLORIDE 0.9% IRRIGATIO 3,000 ML IRRIGATION ONE (12:32)
--- NOTE | 2019-05-31 13:18 | P.OP ---
Date of Procedure: 05/31/19 Preoperative Diagnosis: Severe osteoarthritis right hip Postoperative Diagnosis: Severe osteoarthritis right hip Procedure(s) Performed: Right total hip arthroplasty with a direct anterior approach Implants: [employer]oyola [employer] nephew Polarstem size 5 standard [employer]hew R3, 3 hole acetabular shell, 54 mm [employer]hew reflection 6.5 mm cancellus screw, 20 mm 2 [employer]hew R3, XLPE 20 acetabular liner [employer]hew Oxinium femoral head 36 m, +8 All components were press-fit. The articulation is Oxinium on polyethylene. Anesthesia: spinal Surgeon: Caden Rider Hot Air Furnace Installer Repairer #1: Denise Ray Estimated Blood Loss (ml): 150 (67 mL returned with Cell Saver) Pathology: other (Femoral head) Condition: stable Disposition: PACU Indications for Procedure: After failure of conservative treatment we discussed the surgical and nonsurgical treatment options at length. Patient wishes to proceed with a total hip arthroplasty with a direct anterior approach. Complications specific to this procedure were discussed at length, including but not limited to infection, leg length discrepancy, dislocation, and nerve injury. Patient is aware of all these complications and informed consent was obtained Operative Findings: The operative findings are consistent with severe osteoarthritis of the right hip Description of Procedure: Patient was seen and evaluated in the preoperative area, consent was reviewed, and the surgical site was marked with a skin marker. Patient was then brought to the operating room and given prophylactic antibiotics intravenously. 1 g of Tranexamic acid was also given. A spinal anesthetic was administered by the anesthesia department. The patient was then placed on the [place] table with the bony prominences well-padded. The hip area was then prepped and draped in usual sterile fashion. A universal timeout was then performed, which confirmed the patient's name, surgical site, ALLERGIES, and procedure being performed. Next the incision site was located at 1 cm distal and 1 cm lateral to the anterior superior iliac spine. The skin and subcutaneous tissues were sharply incised. Incision was carefully dissected down to the fascia overlying the tensor fascia marion muscle. This fascia was then incised in line with the incision. Next, using blunt finger dissection, the tensor fascia marion muscle was dissected off its investing fascia. The muscle was then carefully retracted laterally with a cobra retractor over the lateral neck of the femur. Next, the circumflex vessels were identified and cauterized using the AquaMantis device. The anterior hip capsule was then exposed. The capsule was then opened and an inverted T fashion. Cobra retractors were then placed intracapsularly. The proximal femur was then visualized. The femoral neck was then osteotomized appropriate level above the lesser trochanter. Small amount of traction was placed with the [place] table. A small wedge of bone was then removed from the remaining femoral head. Next, using a corkscrew femoral head was easily removed from the acetabulum. On gross visual inspection, the femoral head had complete loss of articular cartilage in mu ltiple periarticular osteophytes. Attention was then turned to the acetabulum. the acetabulum was exposed and any remaining labrum was excised. Sequential reaming of the acetabulum was performed using fluoroscopic guidance. When the appropriate size was reached, a trial was then placed. The position and fit of the trial was checked with fluoroscopy. The trial was then removed. Then, using fluoroscopic guidance, the final implant was impacted at 20 of anteversion and 40 of abduction, and fully seated in the acetabulum. 2 screws were then placed in the acetabulum. Again fluoroscopy was used to check position of the screws. Next, the liner was then impacted, with a 20 elevated liner located in the anterior superior quadrant. Component locking was confirmed. Attention was then directed to the femur. With the aid of the [place] table, the femur was externally rotated to approximately 130, extended, and abducted under the opposite leg. A side hook was then placed under the proximal femur, and the side hook elevator was used to elevate the proximal femur. Retractors were then placed. A capsular release was performed, as well as a release of the conjoined tendon, which afforded excellent visualization of the proximal femur. Next, a box osteotome was used to lateralize the proximal femur. A handle bar assembler was then used to locate the femoral canal. Sequential broaching was then performed with appropriate size which afforded excellent fixation in the proximal femur. A trial was then placed with appropriate head and neck, and the hip was gently reduced with the aid of the [place] table. Fluoroscopy was then used to check position of the components, as well as to ensure equal leg lengths. The hip was then gently dislocated and the trials were then removed. Final implants were then impacted and the hip was again reduced. Final fluoroscopic x-rays confirmed that the components were in anatomic position, as well as equal leg lengths. The hip was also taken through range of motion, and found to be stable. The hip was then copiously irrigated with antibiotic solution with pulsatile lavage. The hip was then irrigated with Irrisept solution. The soft tissues were then injected with a ropivacaine solution, which consisted of 246.25 mg of ropivacaine, 0.5 mg of epinephrine, 30 mg of Toradol, 80 g of clonidine, and 48.45 mL of sterile water, for a total of 100 mL of fluid injected. A second dose of 1 g of Tranexamic acid was also given. the fascia was then closed with 2-0 strata fix suture. The subcutaneous tissue was closed with 3-0 Vicryl. The subcuticular tissue was closed with 3-0 strata fix suture. The skin was then closed with Dermabond glue and a sterile silver dressing. The patient was then transferred to the recovery room in stable co ndition. The supply chain assistant ALEXIA Anaya was required due to the complexity of surgery, and the need for skilled certified medical technician assistant for positioning, draping, exposure, retraction, and closure of the wound.
[2019-05-31] MEDS ORDERED: LACTATED RINGERS 1,000 ML IV ONE (13:23)
--- NOTE | 2019-05-31 13:27 | XR ---
EXAMINATION TYPE: XR Hip Limited RT, FL guidance operating room DATE OF EXAM: 05/31/2019 CLINICAL HISTORY: Fluoroscopic dilatation during right hip replacement. TECHNIQUE: Fluoroscopy. COMPARISON: None. FINDINGS: Fluoroscopic guidance was provided during procedure performed by Dr. Rider. A total of 49 seconds of fluoroscopic time was utilized during the procedure and 2 spot images were acquired du ring right hip arthroplasty. IMPRESSION: As Above.
--- NOTE | 2019-05-31 14:03 | XR ---
EXAMINATION TYPE: XR Hip Limited RT DATE OF EXAM: 05/31/2019 COMPARISON: NONE HISTORY: Postop TECHNIQUE: One view submitted. FINDINGS: There is postsurgical change in near anatomic alignment. There is soft tissue edema and emphysema. V ascular calcifications are noted. Lucency involving the superior pubic ramus and along the inner talya in the acetabulum is nonspecific may be related to soft tissue emphysema should be correlated clinica lly. IMPRESSION: 1. Postoperative change. Appears in near-anatomic alignment. See above.
[2019-05-31 16:32] VITALS: RESP 16
[2019-05-31] MEDS: SODIUM CHLORIDE 0.9% 1,000 ML IV SCH (20:48)
[2019-05-31] MEDS: SENNOSIDES-DOCUSATE SODIUM 1 EACH TAB PO SCH (20:52)
[2019-05-31] MEDS: ASPIRIN 325 MG TAB PO SCH (20:52)
[2019-05-31 22:47] VITALS: TEMP 98
[2019-06-01 07:50] VITALS: BP 162/87; PULSE 85
[2019-06-01] MEDS: SODIUM CHLORIDE 0.9% 1,000 ML IV SCH (07:57)
[2019-06-01] MEDS: LACTATED RINGERS 1,000 ML IV SCH (07:57)
[2019-06-01 08:18] LABS: Basophils # (A) 0.1 k/uL (0-0.2); Basophils % (A) 1 %; Eosinophils # (A) 0.1 k/uL (0-0.7); Eosinophils % (A) 1 %; HGB 12.6 gm/dL (13.0-17.5); Lymphocytes # (A) 1.9 k/uL (1.0-4.8); Lymphocytes % (A) 17 %; MCH 29.8 pg (25.0-35.0); MCHC 32.3 g/dL (31.0-37.0); MCV 92.2 fL (80.0-100.0); Mean Platelet Volume 6.9; Monocytes # (A) 0.7 k/uL (0-1.0); Monocytes % (A) 7 %; Neutrophils % (A) 74 %; Platelet Count 281 k/uL (150-450); RBC 4.23 m/uL (4.30-5.90); RDW 13.6 % (11.5-15.5); WBC 10.9 k/uL (3.8-10.6)
[2019-06-01] MEDS: ASPIRIN 325 MG TAB PO SCH (08:59)
[2019-06-01] MEDS ORDERED: LISINOPRIL 10 MG TAB PO SCH (09:00)
[2019-06-01] MEDS ORDERED: MELOXICAM 7.5 MG TAB PO SCH (09:00)
[2019-06-01] MEDS ORDERED: HYDROCHLOROTHIAZIDE 12.5 MG CAP PO SCH (09:00)
[2019-06-01] MEDS: SENNOSIDES-DOCUSATE SODIUM 1 EACH TAB PO SCH (09:06)
--- NOTE | 2019-06-01 09:07 | P.DS ---
Providers Date of admission: 05/31/19 09:43 Expected date of discharge: 06/01/19 Attending physician: Caden Rider Consults: 05/31/19 11:45 Consult Physician Routine Consulting Provider: Shyann Robles Consult Reason/Comments: medical management Do you want consulting provider notified?: Yes Primary care physician: Eden Mayorga Charbal - Discharge Diagnosis(es) (1) Osteoarthritis of right hip Current Visit: Yes Status: Acute (2) S/P total hip arthroplasty Current Visit: Yes Status: Acute Hospital Course: This is a 74-year-old male with known history of degenerative arthritis of the right hip. The patient presents for evaluation. After discussion and consideration patient elects to proceed with total hip arthroplasty. The patient is seen preoperatively by Dr. Rider and medically cleared for surgery by their primary care physician. Patient is admitted to [facility] on 05/31/2019 for total hip arthroplasty. The procedures performed without complication or sequelae. The patient is doing well postoperatively. Labs and vital signs are stable on day of discharge. On day of discharge patient's hip incision is healing well. There is minimal erythema. There is no drainage noted at this time. There is minimal soft tissue swelling to the hip and thigh. Patient has full foot and ankle motion without difficulty or pain. Calf is soft and nontender to palpation. Neurovascular status to the right lower extremity is intact. Patient is discharged home in good condition. Opioid start talking form is reviewed and signed at patient bedside. Please see med rec for accurate list of home medications. Plan - Discharge Summary Discharge Rx Participant: No New Discharge Prescriptions: New Aspirin 325 mg PO BID #60 tab HYDROcodone/APAP 5-325MG [[place] 5-325] 1 - 2 tab PO Q6HR PRN #56 tab PRN Reason: Pain Sennosides [Senokot] 1 tab PO BID #60 tablet No Action Naproxen [Naprosyn] 500 mg PO Q12HR PRN 10 Days #20 tab PRN Reason: Pain Hydrochlorothiazide [Hydrodiuril] 12.5 mg PO DAILY NIFEdipine [NIFEdipine ER] 60 mg PO DAILY Benazepril [Lotensin] 10 mg PO DAILY Meloxicam [Mobic] 15 mg PO DAILY Discharge Medication List Naproxen [Naprosyn] 500 mg PO Q12HR PRN 10 Days #20 tab 10/30/18 [Rx] Benazepril [Lotensin] 10 mg PO DAILY 09/28/18 [History] Hydrochlorothiazide [Hydrodiuril] 12.5 mg PO DAILY 09/28/18 [History] NIFEdipine [NIFEdipine ER] 60 mg PO DAILY 09/28/18 [History] Meloxicam [Mobic] 15 mg PO DAILY 05/26/19 [History] Aspirin 325 mg PO BID #60 tab 06/01/19 [Rx] HYDROcodone/APAP 5-325MG [[place] 5-325] 1 - 2 tab PO Q6HR PRN #56 tab 06/01/19 [Rx] Sennosides [Senokot] 1 tab PO BID #60 tablet 06/01/19 [Rx] Follow up Appointment(s)/Referral(s): Caden Rider DO [Doctor of Osteopathic Medicine] - 2 Weeks Activity/Diet/Wound Care/Special Instructions: Weightbearing as tolerated with walker. Leave dressing intact. Dressing may be removed by home care nurse or by patient in 10 days. May shower with dressing on. Recommend use of compression stockings daily for at least 2 weeks during the day to help prevent swelling and blood clots. May remove at night before sleeping. Please follow-up with [facility] in 2 weeks and call with any questions or concerns, . Discharge Disposition: HOME WITH HOME HEALTH SERVICES
--- NOTE | 2019-06-01 10:32 | P.CONS ---
History of Present Illness - Reason for Consult Consult date: 06/01/19 Medical management of hypertension - Chief Complaint Right hip total arthroplasty - History of Present Illness Patient is a 74-year-old male with a known history of hypertension, osteoarthritis and history of fractured right knee As well as previous history of smoking was admitted to the hospital for elective right total hip arthroplasty. Patient tolerated procedure very well. Postoperatively patient blood pressure was elevated with SBP was in 160 mmHg. Patient otherwise denied any complaints of headache or dizziness or lightheadedness. No nausea vomiting. Denied any recent illnesses. Next and no chest pain or shortness of breath. Patient does have a history of smoking but currently denied any alcohol or smoking. Review of Systems Constitutional: Patient denies any fever or chills . No generalized weakness or weight loss. Abdomen: Patient denied nausea vomiting and diarrhea and abdominal pain. Cardiovascular: Patient denies any chest pain or short of breath no palpitations. Respiratory: patient denied any cough is from production. No shortness of breath Neurologic: Patient denied any numbness or tingling headache. Musculoskeletal: Patient denies any complaints of joint swelling or deformity. Skin: Negative Psychiatric: Negative Endocrine: No heat or cold intolerance. No recent weight gain. Genitourinary: No dysuria or hematuria. All other 14 point ROS negative except the above Past Medical History Past Medical History: Hypertension, Osteoarthritis (OA) Additional Past Medical History / Comment(s): fractured right knee cap History of Any Multi-Drug Resistant Organisms: None Reported Past Surgical History: Joint Replacement, Orthopedic Surgery Additional Past Surgical History / Comment(s): left ring finger surgery, right knee replaced 2018 Past Anesthesia/Blood Transfusion Reactions: No Reported Reaction Past Psychological History: No Psychological Hx Reported Smoking Status: Former smoker Past Alcohol Use History: Daily Additional Past Alcohol Use History / Comment(s): STARTED SMOKING AT AGE 22 QUIT AT AGE 55 SMOKED 1PPD , 2 -3 DRINKS A DAY- BEER Past Drug Use History: None Reported - Past Family History Mother Family Medical History: No Reported History Brother(s) Family Medical History: No Reported History Medications and Allergies Home Medications Medication Instructions Recorded Confirmed Type Benazepril [Lotensin] 10 mg PO DAILY 09/28/18 05/26/19 History Hydrochlorothiazide [Hydrodiuril] 12.5 mg PO DAILY 09/28/18 05/31/19 History NIFEdipine [NIFEdipine ER] 60 mg PO DAILY 09/28/18 05/26/19 History Meloxicam [Mobic] 15 mg PO DAILY 05/26/19 05/26/19 History Aspirin 325 mg PO BID #60 tab 06/01/19 Rx HYDROcodone/APAP 5-325MG [[place] 1 - 2 tab PO Q6HR PRN #56 tab 06/01/19 Rx 5-325] Lisinopril [Zestril] 10 mg PO DAILY tab 06/01/19 Rx Sennosides [Senokot] 1 tab PO BID #60 tablet 06/01/19 Rx Allergies Allergy/AdvReac Type Severity Reaction Status Date / Time No Known Allergies Allergy Verified 05/31/19 10:16 Physical Exam Vitals: Vital Signs Temp Pulse Resp BP Pulse Ox 06/01/19 07:00 98.0 F 85 16 162/87 96 05/31/19 20:09 98.0 F 94 16 121/79 94 L 05/31/19 16:30 97.6 F 93 16 167/72 95 05/31/19 16:09 78 15 154/78 98 05/31/19 15:37 88 16 178/86 94 L 05/31/19 15:11 88 16 178/97 95 05/31/19 14:31 82 16 161/77 94 L 05/31/19 14:17 84 16 140/88 97 05/31/19 14:00 83 16 155/78 100 05/31/19 13:39 97.8 F 84 12 117/57 97 05/31/19 10:10 96.8 F L 85 18 140/83 97 Intake and Output 05/31/19 06/01/19 06/01/19 22:59 06:59 14:59 Intake Total 320 800 Output Total 900 Balance -580 800 Intake: Intake, IV Titration 800 Amount Sodium Chloride 0.9% 1, 700 000 ml @ 70 mls/hr IV . [id number] [facility] Rx#:[id number] ceFAZolin 2 gm In Sodium 100 Chloride 0.9% 50 ml @ 100 mls/hr IVPB Q8H [facility] Rx#: [id number] Oral 320 Output: Urine 900 Other: Voiding Method Toilet PHYSICAL EXAMINATION: Patient is lying in the bed comfortably, no acute distress, awake alert and oriented.. HEENT: Normocephalic. Neck is supple. Pupils reactive. Nostrils clear. Oral cavity is moist. Ears reveal no drainage. Neck reveals no JVD, carotid bruits, or thyromegaly. CHEST EXAMINATION: Trachea is central. Symmetrical expansion. Lung brito clear to auscultation and percussion. CARDIAC: Normal S1, S2 with no gallops. No murmurs ABDOMEN: Soft. Bowel sounds normal. No organomegaly. No abdominal bruits. Extremities: reveal no edema. No clubbing or cyanosis Neurologically awake, alert, oriented x3 with well-coordinated movements. No focal deficits noted Skin: No rash or skin lesions. Psychiatric: Coperative. Nonsuicidal Musculoskeletal: No joint swelling or deformity. Normal range of motion. Results CBC & Chem 7: 06/01/19 06:54 05/31/19 10:30 Labs: Abnormal Lab Results - Last 24 Hours (Table) 06/01/19 Range/Units 06:54 WBC 10.9 H (3.8-10.6) k/uL RBC 4.23 L (4.30-5.90) m/uL Hgb 12.6 L (13.0-17.5) gm/dL Neutrophils # 8.0 H (1.3-7.7) k/uL Assessment and Plan Assessment: Uncontrolled hypertension likely due to pain. Osteoarthritis Status post right total hip arthroplasty. Postoperative day 1 Previous history of smoking DVT prophylaxis Plan: patient be continued on home blood pressure medications including hydrochlorothiazide, lisinopril and nifedipine. Potassium is normal. will repeat blood pressure again after medications. Continue the pain management and follow closely. Encourage incentive spirometry and ambulation. Further recommendations based on the clinical course. We will continue to follow with you . Patient is being discharged home today. Thank you for your consult. Time with Patient: Greater than 30
== END 2019-06-01 10:45 | disposition home health service (06) | DRG 470 ==
LOC: 2ORMAIN 09:43 → 4SSUR 16:05
PROVIDERS: ADMIT Orthopaedic Surgery; ATTEND Orthopaedic Surgery
PROC: 30233H0 Transfusion of Autologous Whole Blood into Peripheral Vein, Percutaneous Approach (ICD-10-PCS; 2019-05-31)
PROC: 0SR906A Replacement of Right Hip Joint with Oxidized Zirconium on Polyethylene Synthetic Substitute, Uncemented, Open Approach (ICD-10-PCS; principal; 2019-05-31 11:25)
DX: M16.11 Unilateral primary osteoarthritis, right hip (principal); I10 Essential (primary) hypertension; Z96.651 Presence of right artificial knee joint; M19.011 Primary osteoarthritis, right shoulder; M75.121 Complete rotator cuff tear or rupture of right shoulder, not specified as traumatic; Z87.891 Personal history of nicotine dependence; Z79.899 Other long term (current) drug therapy; Z98.890 Other specified postprocedural states; Z79.82 Long term (current) use of aspirin; Z79.1 Long term (current) use of non-steroidal anti-inflammatories (NSAID); Z97.3 Presence of spectacles and contact lenses
CPT/HCPCS: 73501; 84132; 85025; 86850; 86891; 86900; 86901; 88300

== ENCOUNTER 2019-06-11 10:41 | Inpatient (IN) | payer MEDICARE ==
[2019-06-11] MEDS ORDERED: ONDANSETRON 4 MG/2 ML VIAL IVP STA (11:06)
[2019-06-11] MEDS ORDERED: SODIUM CHLORIDE 0.9% 1,000 ML IV ONE ×2 (11:06)
[2019-06-11] MEDS ORDERED: HYDROmorphone 1 MG/ML 1 ML SYRINGE IVP STA ×2 (11:06→12:50)
--- NOTE | 2019-06-11 11:18 | ED ---
Fall HPI - General Chief Complaint: Fall Stated Complaint: Leg pain Time Seen by Provider: 06/11/19 10:46 Source: patient, EMS, RN notes reviewed, old records reviewed Mode of arrival: EMS - History of Present Illness Initial Comments: Patient is a 74-year-old male, who presents emergency Department today with right hip pain, shortening of the leg after a fall. Patient had a right hip replacement done [address] Rider. Patient reports that he caught his shoe on the carpet of the stair and fell 2 steps face first. He reports he did hit his head but denies any loss of consciousness. He takes aspirin but no other blood thinners. He denies any neck pain. His only complaint is right thigh and hip pain. Patient reports that prior to this fall he was having some worsening right thigh pain for the past few days. - Related Data Home Medications Medication Instructions Recorded Confirmed Hydrochlorothiazide [Hydrodiuril] 25 mg PO DAILY 09/28/18 06/11/19 Meloxicam [Mobic] 15 mg PO DAILY 05/26/19 06/11/19 Benazepril HCl 20 mg PO DAILY 06/11/19 06/11/19 NIFEdipine [Procardia XL] 60 mg PO DAILY 06/11/19 06/11/19 Previous Rx's Medication Instructions Recorded Aspirin 325 mg PO BID #60 tab 06/01/19 HYDROcodone/APAP 5-325MG [[place] 1 - 2 tab PO Q6HR PRN #56 tab 06/01/19 5-325] Sennosides [Senokot] 1 tab PO BID #60 tablet 06/01/19 Allergies Allergy/AdvReac Type Severity Reaction Status Date / Time No Known Allergies Allergy Verified 06/11/19 11:27 Review of Systems ROS Statement: Those systems with pertinent positive or pertinent negative responses have been documented in the HPI. ROS Other: All systems not noted in ROS Statement are negative. Past Medical History Past Medical History: Hypertension, Osteoarthritis (OA) Additional Past Medical History / Comment(s): fractured right knee cap History of Any Multi-Drug Resistant Organisms: None Reported Past Surgical History: Joint Replacement, Orthopedic Surgery Additional Past Surgical History / Comment(s): left ring finger surgery, right knee replaced 2018 R hip Past Anesthesia/Blood Transfusion Reactions: No Reported Reaction Past Psychological History: No Psychological Hx Reported Smoking Status: Former smoker Past Alcohol Use History: Daily Past Drug Use History: None Reported - Past Family History Mother Family Medical History: No Reported History Brother(s) Family Medical History: No Reported History General Exam - General Exam Comments Initial Comments: Pleasant 74-year-old male. Patient appears in no acute distress. Alert and oriented. Limitations: no limitations General appearance: alert, in no apparent distress Head exam: Present: atraumatic, normocephalic, normal inspection Eye exam: Present: normal appearance, PERRL, EOMI. Absent: scleral icterus, conjunctival injection, periorbital swelling ENT exam: Present: normal exam, mucous membranes moist Neck exam: Present: normal inspection. Absent: tenderness, meningismus, lymphadenopathy GI/Abdominal exam: Present: soft, normal bowel sounds. Absent: distended, tenderness, guarding, rebound, rigid Extremities exam: Present: full ROM, normal capillary refill. Absent: normal inspection, tenderness, pedal edema, joint swelling, calf tenderness Right Hip exam: Present: tenderness, swelling, ecchymosis (over hip and proximal thigh), external rotation, shortening. Absent: normal inspection (well appearing anterior approach incision site of R hip. ), full ROM Upper Leg exam: Present: tenderness (over proximal thigh), swelling. Absent: normal inspection Knee exam: Absent: normal inspection Lower Leg exam: Present: normal inspection, full ROM Ankle exam: Present: normal inspection, full ROM Foot/Toe exam: Present: normal inspection Course Vital Signs 06/11/19 10:55 Temperature 97.9 F Pulse Rate 94 Respiratory 18 Rate Blood Pressure 172/102 O2 Sat by Pulse 96 Oximetry Medical Decision Making - Medical Decision Making Patient is a 74-year-old male presents emergency department today after tripping fall or 2 stairs. Patient complains of right hip and thigh pain. He had an elective right hip arthroplasty completed one week ago by Dr. Rider. Patient's leg is shortened and externally rotated. X-ray confirms a me tadiaphyseal displaced fracture. Labs are reviewed. White blood count of 13.6. Hemoglobin of 12.9. Platelet of 494. Patient is slightly hyponatremic sodium of 129. Kidney and liver function tests are unremarkable.Patient is a daily drinker, but is not intoxicated at this time. Patient has as discussed with Dr. Marcus. He did consult Dr. Rider who did the patient's original R hip arthroplasty. Patient will be admitted at this time to Dr. Rider with medicine on consult. Likely having surgery on Thursday when Dr. Rider returns. - Lab Data Result diagrams: 06/11/19 11:20 06/11/19 11:20 Lab Results 06/11/19 06/11/19 06/11/19 Range/Units 11:20 11:20 11:20 WBC 13.6 H (3.8-10.6) k/uL RBC 4.28 L (4.30-5.90) m/uL Hgb 12.9 L (13.0-17.5) gm/dL Hct 37.6 L (39.0-53.0) % MCV 87.9 (80.0-100.0) fL MCH 30.1 (25.0-35.0) pg MCHC 34.3 (31.0-37.0) g/dL RDW 12.6 (11.5-15.5) % Plt Count 494 H (150-450) k/uL Neutrophils % 88 % Lymphocytes % 6 % Monocytes % 3 % Eosinophils % 1 % Basophils % 1 % Neutrophils # 11.9 H (1.3-7.7) k/uL Lymphocytes # 0.8 L (1.0-4.8) k/uL Monocytes # 0.4 (0-1.0) k/uL Eosinophils # 0.2 (0-0.7) k/uL Basophils # 0.1 (0-0.2) k/uL PT 9.6 (9.0-12.0) sec INR 0.9 (<1.2) APTT 22.6 (22.0-30.0) sec Sodium 129 L (137-145) mmol/L Potassium 4.6 (3.5-5.1) mmol/L Chloride 91 L (98-107) mmol/L Carbon Dioxide 27 (22-30) mmol/L Anion Gap 11 mmol/L BUN 13 (9-20) mg/dL Creatinine 0.94 (0.66-1.25) mg/dL Est GFR (CKD-EPI)AfAm >90 (>60 ml/min/1.73 sqM) Est GFR (CKD-EPI)NonAf 80 (>60 ml/min/1.73 sqM) Glucose 141 H (74-99) mg/dL Calcium 9.8 (8.4-10.2) mg/dL Total Bilirubin 0.8 (0.2-1.3) mg/dL AST 40 (17-59) U/L ALT 32 (21-72) U/L Alkaline Phosphatase 105 (38-126) U/L Total Protein 7.0 (6.3-8.2) g/dL Albumin 4.1 (3.5-5.0) g/dL - Radiology Data Radiology results: report reviewed Fracture of the proximal harmeet diametaphysis of the right femur which is mildly displaced. One view chest x-ray shows no active intrathoracic disease. Disposition Clinical Impression: Femur fracture, right, S/P total hip arthroplasty Disposition: ADMITTED IP TO THIS [facility] Condition: Stable Is patient prescribed a controlled substance at d/c from ED?: No Referrals: Nacho Harmon MD [Primary Care Provider] - 1-2 days Time of Disposition: 12:49
[2019-06-11 11:39] LABS: Basophils # (A) 0.1 k/uL (0-0.2); Basophils % (A) 1 %; Eosinophils # (A) 0.2 k/uL (0-0.7); Eosinophils % (A) 1 %; HCT 37.6 % (39.0-53.0); HGB 12.9 gm/dL (13.0-17.5); Lymphocytes # (A) 0.8 k/uL (1.0-4.8); Lymphocytes % (A) 6 %; MCH 30.1 pg (25.0-35.0); MCHC 34.3 g/dL (31.0-37.0); MCV 87.9 fL (80.0-100.0); Mean Platelet Volume 5.6; Monocytes # (A) 0.4 k/uL (0-1.0); Monocytes % (A) 3 %; Neutrophils # (A) 11.9 k/uL (1.3-7.7); Neutrophils % (A) 88 %; Platelet Count 494 k/uL (150-450); RBC 4.28 m/uL (4.30-5.90); RDW 12.6 % (11.5-15.5); WBC 13.6 k/uL (3.8-10.6)
[2019-06-11 11:47] LABS: INR 0.9 (<1.2); Partial Thromboplastin Time 22.6 sec (22.0-30.0); Prothrombin Time 9.6 sec (9.0-12.0)
[2019-06-11 12:02] LABS: ALT 32 U/L (21-72); AST 40 U/L (17-59); African American GFR (CKD) >90 (>60 ml/min/1.73 sqM); Albumin 4.1 g/dL (3.5-5.0); Alkaline Phosphatase 105 U/L (38-126); Anion Gap 11 mmol/L; Blood Urea Nitrogen 13 mg/dL (9-20); Calcium 9.8 mg/dL (8.4-10.2); Carbon Dioxide 27 mmol/L (22-30); Chloride 91 mmol/L (98-107); Glucose 141 mg/dL (74-99); Potassium 4.6 mmol/L (3.5-5.1); Sodium 129 mmol/L (137-145); Total Bilirubin 0.8 mg/dL (0.2-1.3)
--- NOTE | 2019-06-11 12:21 | XR ---
EXAMINATION TYPE: XR Hip RT and AP Pelvis , 3 VIEWS DATE OF EXAM ORDERED: 06/11/2019 HISTORY: fall, recent replacement. COMPARISON: None. FINDINGS: There is a right hip arthroplasty in place. There is a fracture through the proximal diaphy sis which is mildly displaced. This extends up and through the greater trochanter. The hip appears to remain located. No definite pelvic fracture is seen. IMPRESSION: FRACTURE OF THE PROXIMAL DIAMETAPHYSIS OF THE RIGHT FEMUR WHICH IS MILDLY DISPLACED. CODE A: INITIAL ENCOUNTER FOR CLOSED FRACTURE.
--- NOTE | 2019-06-11 12:22 | XR ---
EXAMINATION TYPE: XR chest 1V DATE OF EXAM: 06/11/2019 HISTORY: fall, recent replacement. REFERENCE: NONE. FINDINGS: The lungs are clear. Pleural space are clear. The heart is not enlarged. IMPRESSION: NO ACTIVE INTRATHORACIC DISEASE.
[2019-06-11] MEDS ORDERED: NALOXONE 0.4 MG/ML 1 ML VIAL IV PRN (12:50)
[2019-06-11] MEDS ORDERED: ACETAMINOPHEN TAB 325 MG TAB PO PRN (12:50)
[2019-06-11] MEDS ORDERED: ONDANSETRON 4 MG/2 ML VIAL IVP PRN (12:50)
[2019-06-11] MEDS ORDERED: KETOROLAC 30 MG/ML 1 ML VIAL IVP PRN (12:50)
[2019-06-11] MEDS ORDERED: HYDROmorphone 0.5 MG/0.5 ML SYRINGE IVP PRN (12:50)
[2019-06-11] MEDS: SODIUM CHLORIDE 0.9% 1,000 ML IV SCH ×2 (13:50→20:27)
[2019-06-11] MEDS: HYDROmorphone 1 MG/ML 1 ML SYRINGE IVP PRN ×3 (16:32→22:40)
--- NOTE | 2019-06-11 17:06 | US ---
EXAMINATION TYPE: US venous doppler duplex LE RT DATE OF EXAM: 06/11/2019 4:57 PM COMPARISON: NONE CLINICAL HISTORY: r/o dvt. SIDE PERFORMED: Right TECHNIQUE: The lower extremity deep venous system is examined utilizing real time linear array sonog gar[place] with graded compression, doppler sonography and color-flow sonography. VESSELS IMAGED: External Iliac Vein (EIV) Common Femoral Vein Deep Femoral Vein Greater Saphenous Vein * Femoral Vein Popliteal Vein Small Saphenous Vein * Proximal Calf Veins (* superficial vessels) Technically difficult in lower femoral vein due to extensive swelling. Right Leg: Negative for DVT IMPRESSION: 1. Right lower extremity ultrasound negative for deep venous thrombosis.
[2019-06-11] MEDS: SENNOSIDES 8.6 MG TAB PO SCH (20:13)
[2019-06-11] MEDS: ASPIRIN 325 MG TAB PO SCH (20:13)
--- NOTE | 2019-06-11 22:16 | P.CONS ---
History of Present Illness - Reason for Consult Consult date: 06/11/19 Medical management of hypertension - Chief Complaint Right hip pain - History of Present Illness Patient is a 74-year-old male with a known history of hypertension, osteoarthritis and history of fractured right knee As well as previous history of smoking who was discharged from the hospital on 06/01/2019 after right total hip arthroplasty came to the hospital with complaints of right hip pain status post fall. Patient says that she got so on the carpet or the states and fell 2 steps face first.He reports he did hit his head but denies any loss of consciousness. He takes aspirin but no other blood thinners. He denies any neck pain. His only complaint is right thigh and hip pain. Patient reports that prior to this fall he was having some worsening right thigh pain for the past few days and states that his right leg gave away before the fall.. Patient also has been having right lower extremity swelling since surgery in September when he had right total knee arthroplasty. No recent increased swelling. Patient is also complaining of right leg pain. No fever no chills. No chest pain or shortness of breath. No dizziness or lightheadedness. Patient's blood pressure was elevated with SBP greater than 170mm hg on admission. Right hip x-ray showed fracture of the proximal diametaphysis of the Right femur which is mildly displaced. Review of Systems Constitutional: Patient denies any fever or chills . No generalized weakness or weight loss. Abdomen: Patient denied nausea vomiting and diarrhea and abdominal pain. Cardiovascular: Patient denies any chest pain or short of breath no palpitations. Respiratory: patient denied any cough is from production. No shortness of breath Neurologic: Patient denied any numbness or tingling headache. Musculoskeletal: Patient denies any complaints of joint swelling or deformity. Right leg pain and swelling Skin: Negative Psychiatric: Negative Endocrine: No heat or cold intolerance. No recent weight gain. Genitourinary: No dysuria or hematuria. All other 14 point ROS negative except the above Past Medical History Past Medical History: Hypertension, Osteoarthritis (OA) Additional Past Medical History / Comment(s): fractured right knee cap History of Any Multi-Drug Resistant Organisms: None Reported Past Surgical History: Joint Replacement, Orthopedic Surgery Additional Past Surgical History / Comment(s): left ring finger surgery, right knee replaced 2018 R hip Past Anesthesia/Blood Transfusion Reactions: No Reported Reaction Past Psychological History: No Psychological Hx Reported Smoking Status: Former smoker Past Alcohol Use History: Daily Past Drug Use History: None Reported - Past Family History Mother Family Medical History: No Reported History Brother(s) Family Medical History: No Reported History Medications and Allergies Home Medications Medication Instructions Recorded Confirmed Type Hydrochlorothiazide [Hydrodiuril] 25 mg PO DAILY 09/28/18 06/11/19 History Meloxicam [Mobic] 15 mg PO DAILY 05/26/19 06/11/19 History Aspirin 325 mg PO BID #60 tab 06/01/19 06/11/19 Rx HYDROcodone/APAP 5-325MG [[place] 1 - 2 tab PO Q6HR PRN #56 tab 06/01/19 06/11/19 Rx 5-325] Sennosides [Senokot] 1 tab PO BID #60 tablet 06/01/19 06/11/19 Rx Benazepril HCl 20 mg PO DAILY 06/11/19 06/11/19 History NIFEdipine [Procardia XL] 60 mg PO DAILY 06/11/19 06/11/19 History Allergies Allergy/AdvReac Type Severity Reaction Status Date / Time No Known Allergies Allergy Verified 06/11/19 11:27 Physical Exam Vitals: Vital Signs Temp Pulse Resp BP Pulse Ox 06/11/19 10:55 97.9 F 94 18 172/102 96 Intake and Output 06/11/19 06/11/19 06/11/19 06:59 14:59 22:59 Other: Weight 90.718 kg PHYSICAL EXAMINATION: Patient is lying in the bed comfortably, no acute distress, awake alert and oriented.. HEENT: Normocephalic. Neck is supple. Pupils reactive. Nostrils clear. Oral cavity is moist. Ears reveal no drainage. Neck reveals no JVD, carotid bruits, or thyromegaly. CHEST EXAMINATION: Trachea is central. Symmetrical expansion. Lung brito clear to auscultation and percussion. CARDIAC: Normal S1, S2 with no gallops. No murmurs ABDOMEN: Soft. Bowel sounds normal. No organomegaly. No abdominal bruits. Extremities: reveal no edema. No clubbing or cyanosis Neurologically awake, alert, oriented x3 with well-coordinated movements. No focal deficits noted Skin: No rash or skin lesions. Psychiatric: Coperative. Nonsuicidal Musculoskeletal: No joint swelling or deformity. Right lower action to swelling and tender to palpation over the femur. Decreased range of motion.. Results CBC & Chem 7: 06/11/19 11:20 06/11/19 11:20 Labs: Abnormal Lab Results - Last 24 Hours (Table) 06/11/19 06/11/19 Range/Units 11:20 11:20 WBC 13.6 H (3.8-10.6) k/uL RBC 4.28 L (4.30-5.90) m/uL Hgb 12.9 L (13.0-17.5) gm/dL Hct 37.6 L (39.0-53.0) % Plt Count 494 H (150-450) k/uL Neutrophils # 11.9 H (1.3-7.7) k/uL Lymphocytes # 0.8 L (1.0-4.8) k/uL Sodium 129 L (137-145) mmol/L Chloride 91 L (98-107) mmol/L Glucose 141 H (74-99) mg/dL Assessment and Plan Assessment: Mildly displaced right femur fracture status post fall. Likely mechanical. Right lower activity swelling. Duplex scan is negative for DVT Status post right total hip arthroplasty on 05/31/2019 Uncontrolled hypertension likely due to pain. Hypovolemic hyponatremia. Likely due to blood pressure medications in the form of hydrochlorothiazide Mild leukocytosis likely reactive. Osteoarthritis Previous history of smoking DVT prophylaxis Plan: patient be continued on home blood pressure medications lisinopril and nifedipine. Hydrochlorothiazide has been held due to hyponatremia. Continue the pain management and follow closely. Encourage incentive spirometry and ambulation. Orthopedic surgery is planning for OR Further recommendations based on the clinical course. Thank you for your consult. Time with Patient: Greater than 30
[2019-06-11] MEDS: HEPARIN SODIUM,PORCINE 5,000 UNIT/ML 1 ML VIAL SQ SCH (22:41)
[2019-06-12] MEDS: HYDROmorphone 1 MG/ML 1 ML SYRINGE IVP PRN ×4 (04:32→18:27)
[2019-06-12 07:09] LABS: Basophils % (A) 0 %; Eosinophils # (A) 0.1 k/uL (0-0.7); Eosinophils % (A) 1 %; HCT 32.7 % (39.0-53.0); HGB 10.9 gm/dL (13.0-17.5); Lymphocytes # (A) 1.6 k/uL (1.0-4.8); Lymphocytes % (A) 19 %; MCH 29.5 pg (25.0-35.0); MCHC 33.2 g/dL (31.0-37.0); MCV 88.6 fL (80.0-100.0); Mean Platelet Volume 5.8; Monocytes # (A) 0.5 k/uL (0-1.0); Monocytes % (A) 6 %; Neutrophils # (A) 5.9 k/uL (1.3-7.7); Neutrophils % (A) 72 %; Platelet Count 422 k/uL (150-450); RBC 3.69 m/uL (4.30-5.90); RDW 12.6 % (11.5-15.5); WBC 8.2 k/uL (3.8-10.6)
[2019-06-12 07:17] LABS: Anion Gap 7 mmol/L; Carbon Dioxide 28 mmol/L (22-30); Chloride 93 mmol/L (98-107); Glucose 104 mg/dL (74-99); Potassium 3.9 mmol/L (3.5-5.1); Sodium 128 mmol/L (137-145)
[2019-06-12 07:18] LABS: African American GFR (CKD) >90 (>60 ml/min/1.73 sqM); Blood Urea Nitrogen 14 mg/dL (9-20); Calcium 8.6 mg/dL (8.4-10.2)
[2019-06-12] MEDS: MELOXICAM 7.5 MG TAB PO SCH (08:49)
[2019-06-12] MEDS: SENNOSIDES 8.6 MG TAB PO SCH ×2 (08:49→20:43)
[2019-06-12] MEDS: PANTOPRAZOLE 40 MG/10 ML VIAL IV SCH (08:49)
[2019-06-12] MEDS: HEPARIN SODIUM,PORCINE 5,000 UNIT/ML 1 ML VIAL SQ SCH ×3 (08:49→23:39)
[2019-06-12] MEDS: SODIUM CHLORIDE 0.9% 1,000 ML IV SCH (08:50)
[2019-06-12] MEDS: LISINOPRIL 20 MG TAB PO SCH (08:50)
[2019-06-12] MEDS ORDERED: HYDROCHLOROTHIAZIDE 25 MG TAB PO SCH (09:00)
[2019-06-12] MEDS: ASPIRIN 325 MG TAB PO SCH (09:05)
--- NOTE | 2019-06-12 10:30 | P.HPOR ---
History of Present Illness H&P Date: 06/12/19 Chief Complaint: Right hip pain This is a 74-year-old male who is status post total right hip arthroplasty, anterior approach on 05/31/2019. He states that his thigh became painful a few days ago which became increasingly worse over the weekend. He states that he is going down the stairs last night when he has severe pain causing him to fall. He was unable to ambulate after the fall. He states that he hit his head against the wall when he fell but denies loss of consciousness. He he was admitted through the emergency department last evening with a periprosthetic f emur fracture. Past Medical History Past Medical History: Hypertension, Osteoarthritis (OA) Additional Past Medical History / Comment(s): fractured right knee cap History of Any Multi-Drug Resistant Organisms: None Reported Past Surgical History: Joint Replacement, Orthopedic Surgery Additional Past Surgical History / Comment(s): left ring finger surgery, right knee replaced 2018 R hip Past Anesthesia/Blood Transfusion Reactions: No Reported Reaction Past Psychological History: No Psychological Hx Reported Smoking Status: Former smoker Past Alcohol Use History: Daily Past Drug Use History: None Reported - Past Family History Mother Family Medical History: No Reported History Brother(s) Family Medical History: No Reported History Medications and Allergies Home Medications Medication Instructions Recorded Confirmed Type Hydrochlorothiazide [Hydrodiuril] 25 mg PO DAILY 09/28/18 06/11/19 History Meloxicam [Mobic] 15 mg PO DAILY 05/26/19 06/11/19 History Aspirin 325 mg PO BID #60 tab 06/01/19 06/11/19 Rx HYDROcodone/APAP 5-325MG [[place] 1 - 2 tab PO Q6HR PRN #56 tab 06/01/19 06/11/19 Rx 5-325] Sennosides [Senokot] 1 tab PO BID #60 tablet 06/01/19 06/11/19 Rx Benazepril HCl 20 mg PO DAILY 06/11/19 06/11/19 History NIFEdipine [Procardia XL] 60 mg PO DAILY 06/11/19 06/11/19 History Allergies Allergy/AdvReac Type Severity Reaction Status Date / Time No Known Allergies Allergy Verified 06/11/19 11:27 Physical Examination This is a pleasant 74-year-old male in no acute distress. He is alert and oriented 3. Exam of the head neck reveal no obvious deformity. He has full cervical spine motion without difficulty or pain. Exam of the lower extremities reveals that his incision has mild erythema and swelling. No drainage. There is pain with any motion of the right hip. He has full foot and ankle motion bilaterally. Neurovascular status to the lower extremity is intact. Results X-rays of the right hip reveal a periprosthetic fracture of the right femur just at the distal aspect of the stem. Fracture has mild displacement. No dislocation noted. - Labs Labs: Abnormal Lab Results - Last 24 Hours (Table) 06/11/19 06/11/19 06/12/19 Range/Units 11:20 11:20 06:50 WBC 13.6 H (3.8-10.6) k/uL RBC 4.28 L 3.69 L (4.30-5.90) m/uL Hgb 12.9 L 10.9 L (13.0-17.5) gm/dL Hct 37.6 L 32.7 L (39.0-53.0) % Plt Count 494 H (150-450) k/uL Neutrophils # 11.9 H (1.3-7.7) k/uL Lymphocytes # 0.8 L (1.0-4.8) k/uL Sodium 129 L (137-145) mmol/L Chloride 91 L (98-107) mmol/L Glucose 141 H (74-99) mg/dL 06/12/19 Range/Units 06:50 WBC (3.8-10.6) k/uL RBC (4.30-5.90) m/uL Hgb (13.0-17.5) gm/dL Hct (39.0-53.0) % Plt Count (150-450) k/uL Neutrophils # (1.3-7.7) k/uL Lymphocytes # (1.0-4.8) k/uL Sodium 128 L (137-145) mmol/L Chloride 93 L (98-107) mmol/L Glucose 104 H (74-99) mg/dL H & H 06/11/19 06/12/19 Range/Units 11:20 06:50 Hgb 12.9 L 10.9 L (13.0-17.5) gm/dL Hct 37.6 L 32.7 L (39.0-53.0) % Coagulation 06/11/19 Range/Units 11:20 INR 0.9 (<1.2) Result Diagrams: 06/12/19 06:50 06/12/19 06:50 Assessment and Plan (1) Periprosthetic fracture around internal prosthetic right hip joint Current Visit: Yes Status: Acute Code(s): M97.01XA - PERIPROSTH FRACTURE AROUND INTERNAL PROSTH R HIP JT, INIT SNOMED Code(s): 098806527 (2) Femur fracture, right Current Visit: Yes Status: Acute Code(s): S72.91XA - UNSP FRACTURE OF RIGHT FEMUR, INIT FOR CLOS FX SNOMED Code(s): 86680256 (3) S/P total hip arthroplasty Current Visit: Yes Status: Acute Code(s): Z96.649 - PRESENCE OF UNSPECIFIED ARTIFICIAL HIP JOINT SNOMED Code(s): 593947724577 Plan: The clinical and x-ray findings are discussed with the patient. It is recommended she undergo open reduction internal fixation of a periprosthetic fracture with revision of the femoral stem. After discussion and consideration patient elects proceed with surgery.
--- NOTE | 2019-06-13 00:04 | P.PN ---
Subjective Progress Note Date: 06/12/19 Principal diagnosis: Right femur fracture status post fall. Patient Patient is a 74-year-old male with a known history of hypertension, osteoarthritis and history of fractured right knee As well as previous history of smoking who was discharged from the hospital on 06/01/2019 after right total hip arthroplasty came to the hospital with complaints of right hip pain status post fall. Patient says that she got so on the carpet or the states and fell 2 steps face first.He reports he did hit his head but denies any loss of consciousness. He takes aspirin but no other blood thinners. He denies any neck pain. His only complaint is right thigh and hip pain. Patient reports that prior to this fall he was having some worsening right thigh pain for the past few days and states that his right leg gave away before the fall.. Patient also has been having right lower extremity swelling since surgery in September when he had right total knee arthroplasty. No recent increased swelling. Patient is also complaining of right leg pain. No fever no chills. No chest pain or shortness of breath. No dizziness or lightheadedness. Patient's blood pressure was elevated with SBP greater than 170mm hg on admission. Right hip x-ray showed fracture of the proximal diametaphysis of the Right femur which is mildly displaced. 06/12/2019 Patient's right leg pain is controlled with medications. Orthopedic surgery is planning for or tomorrow. Sodium is 128. Hydrochlorothiazide is on hold. Follow-up repeat level tomorrow Otherwise patient is afebrile. Lower extremity duplex scan is negative. No chest pain or shortness of breath. No nausea vomiting or abdominal pain. No cough or sputum production. Current medications reviewed. Objective - Vital Signs Vital signs: Vital Signs Temp 98.7 F 06/12/19 07:00 Pulse 95 06/12/19 07:00 Resp 16 06/12/19 07:00 BP 156/84 06/12/19 07:00 Pulse Ox 95 06/12/19 07:00 Intake & Output 06/11/19 06/12/19 06/12/19 18:59 06:59 18:59 Intake Total 1500 Balance 1500 Weight 90.718 kg Intake: Intake, IV Titration 1000 Amount Sodium Chloride 0.9% 1, 1000 000 ml @ 100 mls/hr IV . Q10H [facility] Rx#:[id number] Oral 500 Other: Voiding Method Urinal Urinal # Voids 1 - Exam PHYSICAL EXAMINATION: Patient is lying in the bed comfortably, no acute distress, awake alert and oriented.. HEENT: Normocephalic. Neck is supple. Pupils reactive. Nostrils clear. Oral cavity is moist. Ears reveal no drainage. Neck reveals no JVD, carotid bruits, or thyromegaly. CHEST EXAMINATION: Trachea is central. Symmetrical expansion. Lung brito clear to auscultation and percussion. CARDIAC: Normal S1, S2 with no gallops. No murmurs ABDOMEN: Soft. Bowel sounds normal. No organomegaly. No abdominal bruits. Extremities: reveal no edema. No clubbing or cyanosis Neurologically awake, alert, oriented x3 with well-coordinated movements. No focal deficits noted Skin: No rash or skin lesions. Psychiatric: Coperative. Nonsuicidal Musculoskeletal: No joint swelling or deformity. Right lower action to swelling and tender to palpation over the femur. Decreased range of motion.. - Labs CBC & Chem 7: 06/12/19 06:50 06/12/19 06:50 Labs: Abnormal Lab Results - Last 24 Hours (Table) 06/12/19 06/12/19 Range/Units 06:50 06:50 RBC 3.69 L (4.30-5.90) m/uL Hgb 10.9 L (13.0-17.5) gm/dL Hct 32.7 L (39.0-53.0) % Sodium 128 L (137-145) mmol/L Chloride 93 L (98-107) mmol/L Glucose 104 H (74-99) mg/dL Assessment and Plan Assessment: Mildly displaced right femur fracture status post fall. Likely mechanical. Right lower activity swelling. Duplex scan is negative for DVT Status post right total hip arthroplasty on 05/31/2019 Uncontrolled hypertension likely due to pain. Hypovolemic hyponatremia. Likely due to blood pressure medications in the form of hydrochlorothiazide Mild leukocytosis likely reactive. Osteoarthritis Previous history of smoking DVT prophylaxis Plan: patient be continued on home blood pressure medications lisinopril and nifedipine. Hydrochlorothiazide has been held due to hyponatremia. Continue the pain management and follow closely. Encourage incentive spirometry and ambulation. Orthopedic surgery is planning for OR Further recommendations based on the clinical course. Time with Patient: Greater than 30
[2019-06-13] MEDS: HYDROmorphone 1 MG/ML 1 ML SYRINGE IVP PRN ×2 (01:38→07:43)
[2019-06-13 07:26] LABS: African American GFR (CKD) >90 (>60 ml/min/1.73 sqM); Anion Gap 6 mmol/L; Blood Urea Nitrogen 13 mg/dL (9-20); Calcium 8.6 mg/dL (8.4-10.2); Carbon Dioxide 28 mmol/L (22-30); Chloride 94 mmol/L (98-107); Glucose 96 mg/dL (74-99); Potassium 4.5 mmol/L (3.5-5.1); Sodium 128 mmol/L (137-145)
[2019-06-13] MEDS: MELOXICAM 7.5 MG TAB PO SCH (07:42)
[2019-06-13] MEDS: HEPARIN SODIUM,PORCINE 5,000 UNIT/ML 1 ML VIAL SQ SCH ×3 (07:42→23:13)
[2019-06-13] MEDS: LISINOPRIL 20 MG TAB PO SCH (07:42)
[2019-06-13] MEDS: SENNOSIDES 8.6 MG TAB PO SCH ×2 (07:43→20:30)
[2019-06-13] MEDS: PANTOPRAZOLE 40 MG/10 ML VIAL IV SCH (07:43)
[2019-06-13] MEDS ORDERED: LACTATED RINGERS 1,000 ML IV ONE ×2 (08:07→10:04)
[2019-06-13] MEDS ORDERED: DIAZEPAM 5 MG TAB PO PRN (09:25)
[2019-06-13] MEDS ORDERED: HYDROmorphone 0.5 MG/0.5 ML SYRINGE IVP PRN ×2 (09:25)
[2019-06-13] MEDS ORDERED: NALOXONE 0.4 MG/ML 1 ML VIAL IV PRN (09:25)
[2019-06-13] MEDS ORDERED: MAGNESIUM HYDROXIDE 2,400 MG/10 ML CUP PO PRN (09:25)
[2019-06-13] MEDS ORDERED: HYDROcodone/APAP 7.5-325MG 1 EACH TAB PO PRN (09:25)
[2019-06-13] MEDS ORDERED: ONDANSETRON 4 MG/2 ML VIAL IVP PRN (09:25)
[2019-06-13] MEDS ORDERED: ePHEDrine SULFATE/0.9% NACL/PF 50 MG/5 ML SYRINGE IV ONE (09:34)
[2019-06-13] MEDS ORDERED: PHENYLEPHRINE-0.9% NACL SYG 1 MG/10 ML SYRINGE ONE (09:34)
[2019-06-13] MEDS ORDERED: KETAMINE 10 MG/ML 20 ML VIAL ONE (09:34)
[2019-06-13] MEDS ORDERED: PROPOFOL 10 MG/ML 20 ML VIAL IV ONE (09:34)
[2019-06-13] MEDS ORDERED: MIDAZOLAM 2 MG/2 ML VIAL ONE (09:34)
[2019-06-13] MEDS ORDERED: fentaNYL (PF) 50 MCG/ML 2 ML AMP ONE (09:34)
[2019-06-13] MEDS ORDERED: SODIUM CHLORIDE 0.9% 100 ML with ceFAZolin 2,000 MG IV ONE ×2 (10:00)
[2019-06-13] MEDS ORDERED: ceFAZolin 3,000 MG in SODIUM CHLORIDE 0.9% IRRIGATIO 3,000 ML IRRIGATION ONE (10:04)
--- NOTE | 2019-06-13 11:22 | P.OP ---
Date of Procedure: 06/13/19 Preoperative Diagnosis: Periprosthetic fracture right femur status post total hip arthroplasty Postoperative Diagnosis: Periprosthetic fracture right femur status post total hip arthroplasty Procedure(s) Performed: Open reduction and internal fixation of the periprosthetic fracture of the right femur and revision of the femoral stem. Implants: [employer] Redapt stem size 16, 240 mm standard [employer] Accord cable with clamp, 2.0 mm x 4 [employer] Oxinium femoral head 36 m, +4 All components were press-fit. The articulation is Oxinium on polyethylene. Anesthesia: spinal Surgeon: Caden Rider Fisheries Inspector #1: Denise Ray Estimated Blood Loss (ml): 250 Pathology: none sent Condition: stable Disposition: PACU Indications for Procedure: This is a 74-year-old gentleman that has recently had a total hip arthroplasty performed on 05/31/2019. He was doing well postoperatively, but then began to have some pain in his leg and subsequently fell. He presented to the emergency room which demonstrated a periprosthetic fracture of his right femur. After discussing the surgical and nonsurgical treatment options with him at length, I recommended open reduction and internal fixation of his periprosthetic femur fracture as well as revision to a long femoral stem. He is agreeable to this and informed consent was obtained. Operative Findings: The operative findings are consistent with a periprosthetic fracture of the right femur Description of Procedure: Patient was seen and evaluated in the preoperative area, consent was reviewed, and the surgical site was marked with a skin marker. Patient was then brought to the operating room and given prophylactic antibiotics intravenously. A spinal anesthetic was administered by the anesthesia department. The patient was then placed on the operative table and placed in the lateral decubitus position with the bony prominences well-padded. The hip area was then prepped and draped in usual sterile fashion. A universal timeout was then performed, which confirmed the patient's name, surgical site, ALLERGIES, and procedure being performed. Next the incision site was located in the lateral aspect of the hip, centered at the tip of the greater trochanter.. The skin and subcutaneous tissues were sharply incised. Incision was carefully dissected down to the fascia. This fascia was then incised in line with the incision. Next, a Charnley retractor was then placed in the abductors were identified. The anterior one third of the abductors was released off the trochanter and one large sleeve. Incision was then carried distally in order to expose the fracture. The anterior hip capsule was then exposed. The capsule was then opened. The proximal femur was then visualized. Next, the periprosthetic fracture was exposed and cables were then placed across the fracture site in order to reduce the fracture. The cables were provisionally tightened and the fracture was reduced. Next the hip was then gently dislocated and the femoral component was easily removed. Femoral canal was exposed. Retractors were then placed. Sequential reaming was then performed with appropriate size which afforded excellent fixation in the distal femur. A trial was then placed with appropriate head and neck, and the hip was gently reduced. The leg lengths were checked and found to be equal. Hip was then taken through full range of motion, was stable throughout. The fracture was revisualized and found to be held reduced with the cables in place. Next, the hip was gently dislocated, and the trial was removed. Final implants were then impacted and the hip was again reduced. The leg lengths were again examined and found to be equal. The hip was also taken through range of motion, and found to be stable. The cables were then tightened and cut. The leg was taken through a full range of motion and the fracture was stable. The hip was then copiously irrigated with antibiotic solution with pulsatile lavage. The hip was then irrigated with Irrisept solution. The abductors were then repaired with #5 Ethibond suture with drill holes to the bone. The fascia was closed with #2 strata fix suture. The subcutaneous tissue was closed with 3-0 Vicryl. The skin was closed with vasu. A sterile dressing was then applied. The patient was then transferred to the recovery room in stable condition. The Asst.ALEXIA Anaya was required due to the complexity of surgery, and the need for skilled junior assistant manager for positioning, draping, exposure, retraction, and closure of the wound.and closure of the wound.
[2019-06-13] MEDS: HYDROmorphone 0.5 MG/0.5 ML SYRINGE IVP PRN ×4 (12:12→22:16)
--- NOTE | 2019-06-13 12:14 | XR ---
EXAMINATION TYPE: XR Hip Limited RT DATE OF EXAM: 06/13/2019 COMPARISON: NONE HISTORY: Postop TECHNIQUE: One view submitted. FINDINGS: There is postsurgical change in near anatomic alignment. There is soft tissue edema and emphysema. S urgical vasu seen. IMPRESSION: 1. Postoperative change. Appears in near-anatomic alignment.
[2019-06-13] MEDS: SODIUM CHLORIDE 0.9% 1,000 ML IV SCH (12:47)
[2019-06-13] MEDS: HYDROcodone/APAP 7.5-325MG 1 EACH TAB PO PRN ×2 (13:01→20:04)
[2019-06-13] MEDS: SENNOSIDES-DOCUSATE SODIUM 1 EACH TAB PO SCH (20:05)
--- NOTE | 2019-06-13 20:52 | PN ---
PROGRESS NOTE DATE OF SERVICE: 06/13/2019 This 74-year-old gentleman who was admitted after right femoral fracture underwent open reduction internal fixation of the periprosthetic fracture of the right femur and revision of the femoral stem. The patient is being closely monitored. No chest pain. No palpitations. No fever. On exam, alert and oriented x3. Pulse 101, blood pressure 122/69, respiration 16, temperature 98.9, pulse ox 94% on room air. HEENT: Conjunctivae normal. NECK: No jugular venous distention. CARDIOVASCULAR SYSTEM: S1, S2 muffled. RESPIRATORY SYSTEM: Breath sounds diminished at the bases. A few scattered rhonchi and crackles. ABDOMEN: Soft, non-tender. LEGS: Status post surgery. NERVOUS SYSTEM: No focal deficit. LABS: WBC 8.2, hemoglobin 10.9. Sodium 128. ASSESSMENT: 1. Status post open reduction internal fixation of the periprosthetic fracture of the right femur and revision of the femoral stem. 2. Right lower extremity swelling; Doppler scan negative for deep venous thrombosis. 3. Uncontrolled hypertension. 4. Hypovolemic hyponatremia. 5. Mild leukocytosis. 6. Degenerative joint disease. 7. Anemia normocytic, present on admission. 8. Increased white count. RECOMMENDATIONS AND DISCUSSION: In this 74-year-old gentleman who was admitted after surgery for fracture, at this time I recommend to continue the current medications, incentive spirometry, DVT prophylaxis, pain management. Closely follow with Orthopedic Surgery. Further recommendations to follow. MMODL / IJN: [id number] /
[2019-06-14] MEDS: SODIUM CHLORIDE 0.9% 1,000 ML IV SCH ×2 (02:00→16:27)
[2019-06-14] MEDS: HYDROcodone/APAP 7.5-325MG 1 EACH TAB PO PRN ×3 (02:01→16:26)
[2019-06-14 04:02] LABS: Appearance,Urine Clear (Clear); Bilirubin,Urine Negative (Negative); Blood,Urine Negative (Negative); Color,Urine Yellow; Glucose,Urine (UA) Negative (Negative); Ketones,Urine Trace (Negative); Leukocyte Esterase,Urine Negative (Negative); Mucus,Urine Rare /hpf; Nitrite,Urine Negative (Negative); Protein,Urine 1+ (Negative); RBC,Urine 1 /hpf (0-5); Urobilinogen,Urine <2.0 mg/dL (<2.0); WBC,Urine 1 /hpf (0-5)
[2019-06-14] MEDS: HYDROmorphone 0.5 MG/0.5 ML SYRINGE IVP PRN ×4 (05:33→20:13)
[2019-06-14 07:07] LABS: Basophils % (A) 0 %; Eosinophils # (A) 0.2 k/uL (0-0.7); Eosinophils % (A) 2 %; HCT 26.6 % (39.0-53.0); Lymphocytes # (A) 1.3 k/uL (1.0-4.8); Lymphocytes % (A) 13 %; MCH 29.3 pg (25.0-35.0); MCHC 32.8 g/dL (31.0-37.0); MCV 89.3 fL (80.0-100.0); Mean Platelet Volume 5.9; Monocytes # (A) 0.5 k/uL (0-1.0); Monocytes % (A) 5 %; Neutrophils # (A) 7.9 k/uL (1.3-7.7); Neutrophils % (A) 78 %; Platelet Count 396 k/uL (150-450); RBC 2.98 m/uL (4.30-5.90); RDW 12.6 % (11.5-15.5)
[2019-06-14 07:20] LABS: HGB 8.7 gm/dL (13.0-17.5)
[2019-06-14] MEDS: RIVAROXABAN 10 MG TAB PO SCH (07:58)
[2019-06-14] MEDS: LISINOPRIL 20 MG TAB PO SCH (07:58)
[2019-06-14] MEDS: SENNOSIDES 8.6 MG TAB PO SCH ×2 (07:58→22:13)
[2019-06-14] MEDS: PANTOPRAZOLE 40 MG/10 ML VIAL IV SCH (07:59)
--- NOTE | 2019-06-14 09:40 | P.PN ---
Subjective Progress Note Date: 06/14/19 This is a 74 year-old male who is status post ORIF of periprosthetic fracture of the right femur and revision of the femoral stem. This is postoperative day #1. Patient is seen and evaluated at bedside with Dr. Caden Rider. Patient does admit to soreness in the right hip, but has been out of bed and working with physical therapy. Patient denies any fever/chills, numbness, weakness, tingling, abdominal pain, shortness of breath or chest pain. Objective - Vital Signs Vital signs: Vital Signs Temp 98.2 F 06/14/19 07:00 Pulse 98 06/14/19 07:00 Resp 19 06/14/19 07:35 BP 153/90 06/14/19 07:00 Pulse Ox 96 06/14/19 07:00 Intake & Output 06/13/19 06/14/19 06/14/19 18:59 06:59 18:59 Intake Total 2201 245 Output Total 250 200 Balance 1951 45 Weight 90.718 kg Intake: IV 2000 Intake, IV Titration 245 Amount Sodium Chloride 0.9% 1, 245 000 ml @ 70 mls/hr IV . [id number] [facility] Rx#:[id number] Oral 200 Output: Urine 200 Estimated Blood Loss 250 Other: Voiding Method Urinal Urinal # Voids 3 - Exam Vital signs are stable. Patient is in no acute distress and is alert and oriented 3. Calf is soft and nontender to palpation. Dressing is clean, dry, and intact. Patient has full foot and ankle motion without pain or difficulty. Neurovascular status and circulatory status are intact. - Labs CBC & Chem 7: 06/14/19 06:27 06/13/19 06:45 Labs: Abnormal Lab Results - Last 24 Hours (Table) 06/14/19 06/14/19 Range/Units 03:45 06:27 RBC 2.98 L (4.30-5.90) m/uL Hgb 8.7 L D (13.0-17.5) gm/dL Hct 26.6 L (39.0-53.0) % Neutrophils # 7.9 H (1.3-7.7) k/uL Urine Protein 1+ H (Negative) Urine Ketones Trace H (Negative) Urine Mucus Rare H (None) /hpf Assessment and Plan Assessment: Status post ORIF of periprosthetic fracture of the right femur and revision of the femoral stem. (1) Femur fracture, right Current Visit: Yes Status: Acute Code(s): S72.91XA - UNSP FRACTURE OF RIGHT FEMUR, INIT FOR CLOS FX SNOMED Code(s): 43609083 (2) Periprosthetic fracture around internal prosthetic right hip joint Current Visit: Yes Status: Acute Code(s): M97.01XA - PERIPROSTH FRACTURE AROUND INTERNAL PROSTH R HIP JT, INIT SNOMED Code(s): 654121207 Plan: Continue routine postop care and pain control. Continue hip precautions and use of abductor pillow for 6 weeks. Continue anticoagulation with Xarelto. 50% weightbearing as tolerated with a walker. Daily dressing changes. [place] to be removed 10-14 days postoperatively. Appreciate input from medicine. Possible discharge home with homecare tomorrow. Possible rehab.
--- NOTE | 2019-06-14 14:49 | PN ---
PROGRESS NOTE DATE OF SERVICE: 06/14/2019 This is a 74-year-old gentleman who was admitted with a bleed after surgery, is still complaining of some pain. No chest pain. No palpitations. No fever. Patient will be closely monitored. PT, OT is evaluating the patient. PHYSICAL EXAM: Alert and oriented x3. Pulse 98, blood pressure 153/90, respirations 18, temperature 98.2, pulse ox 96% on room air. HEENT: Conjunctivae normal. NECK: No jugular venous distension. CARDIOVASCULAR SYSTEM: S1, S2, muffled. RESPIRATORY: Breath sounds diminished at the bases, no rhonchi, no crackles. ABDOMEN: Soft, nontender. LEGS: Status post surgery. NERVOUS SYSTEM: No focal deficits. LABS: WBC 10, hemoglobin is 8.7. UA unremarkable. ASSESSMENT: 1. Status post ORIF of the periprosthetic fracture of the right femur and revision of the femoral stem. 2. Right lower extremity swelling, Doppler negative for deep venous thrombosis. 3. Hypertension. 4. Hypovolemic hyponatremia. 5. Mild leukocytosis. 6. Degenerative joint disease. 7. Anemia normocytic, present on admission. 8. Increased WBC. RECOMMENDATION AND DISCUSSION: Recommend to continue current medications, continue with the monitoring and symptomatic treatment. Otherwise, at this time I would recommend continue with the current medications. Pain management, DVT prophylaxis. Incentive spirometry. Continue the home medications. Further recommendations to follow. MMSUZANNEL / CONRADON: [id number] /
[2019-06-14] MEDS: SENNOSIDES-DOCUSATE SODIUM 1 EACH TAB PO SCH (20:12)
[2019-06-15] MEDS: HYDROcodone/APAP 7.5-325MG 1 EACH TAB PO PRN ×4 (02:51→21:28)
[2019-06-15] MEDS: SODIUM CHLORIDE 0.9% 1,000 ML IV SCH ×2 (05:37→19:45)
[2019-06-15] MEDS: SENNOSIDES 8.6 MG TAB PO SCH ×2 (08:35→21:23)
[2019-06-15] MEDS: RIVAROXABAN 10 MG TAB PO SCH (08:35)
[2019-06-15] MEDS: LISINOPRIL 20 MG TAB PO SCH (08:35)
--- NOTE | 2019-06-15 08:50 | P.PN ---
Subjective Progress Note Date: 06/15/19 This is a 74 year-old male who is status post ORIF of periprosthetic fracture of the right femur and revision of the femoral stem. This is postoperative day #2. Patient is seen and evaluated at bedside with Dr. Caden Rider. Patient states that he has been up and walking with physical therapy. Patient denies any new complaints today. Patient denies any fever/chills, numbness, weakness, tingling, abdominal pain, shortness of breath or chest pain. Objective - Vital Signs Vital signs: Vital Signs Temp 98.4 F 06/15/19 07:30 Pulse 99 06/15/19 07:30 Resp 17 06/15/19 07:30 BP 132/80 06/15/19 07:30 Pulse Ox 97 06/15/19 07:30 Intake & Output 06/14/19 06/15/19 06/15/19 18:59 06:59 18:59 Intake Total 665 Output Total 400 Balance 265 Intake: Intake, IV Titration 665 Amount Sodium Chloride 0.9% 1, 665 000 ml @ 70 mls/hr IV . [id number] [facility] Rx#:[id number] Output: Urine 400 Other: Voiding Method Urinal Urinal # Voids 3 2 - Exam Vital signs are stable. Patient is in no acute distress and is alert and oriented 3. Calf is soft and nontender to palpation. Dressing intact. Patient has full foot and ankle motion without pain or difficulty. Neurovascular status and circulatory status are intact. - Labs CBC & Chem 7: 06/14/19 06:27 06/13/19 06:45 Assessment and Plan Assessment: Status post ORIF of periprosthetic fracture of the right femur and revision of the femoral stem. (1) Femur fracture, right Current Visit: Yes Status: Acute Code(s): S72.91XA - UNSP FRACTURE OF RIGHT FEMUR, INIT FOR CLOS FX SNOMED Code(s): 95599776 (2) Periprosthetic fracture around internal prosthetic right hip joint Current Visit: Yes Status: Acute Code(s): M97.01XA - PERIPROSTH FRACTURE AROUND INTERNAL PROSTH R HIP JT, INIT SNOMED Code(s): 088592525 Plan: Continue routine postop care and pain control. Continue hip precautions and use of abductor pillow for 6 weeks. Continue anticoagulation with Xarelto. 50% weightbearing as tolerated with a walker. Daily dressing changes. [place] to be removed 10-14 days postoperatively. Appreciate input from medicine. Anticipate discharge home with home care versus rehab tomorrow.
[2019-06-15] MEDS: PANTOPRAZOLE 40 MG TABLET PO SCH (10:34)
--- NOTE | 2019-06-15 13:22 | US ---
EXAMINATION TYPE: US venous doppler duplex LE RT DATE OF EXAM: 06/15/2019 12:55 PM COMPARISON: 06/11/2019 CLINICAL HISTORY: r/o DVT. Hip replacement. Swelling. Patient does not know if he is on blood thinn ers. SIDE PERFORMED: Right TECHNIQUE: The lower extremity deep venous system is examined utilizing real time linear array sonog garfield with graded compression, doppler sonography and color-flow sonography. VESSELS IMAGED: External Iliac Vein (EIV) Common Femoral Vein Deep Femoral Vein Greater Saphenous Vein * Femoral Vein Popliteal Vein Small Saphenous Vein * Proximal Calf Veins (* superficial vessels) Grayscale, color doppler, spectral doppler imaging performed of the deep veins of the right lower ext remity. There is normal flow, compressibility, vascular waveforms. Right Leg: Negative for DVT. Edema visualized. IMPRESSION: No sonographic evidence of deep venous thrombosis within the right lower extremity. Subc utaneous edema is noted.
--- NOTE | 2019-06-15 13:46 | P.CONS ---
History of Present Illness - Chief Complaint Walking difficulty - History of Present Illness I had the opportunity to see patient for inpatient rehab consultation with regard to walking difficulty. He was admitted to [facility] June 11 history of fall and right hip and thigh pain. History of recent right ADENIKE done 2 weeks ago. At this time. Patient demonstrated proximal diaphysis/periprosthetic fracture. Underwent repair Dr. Caden Rider June 13. Hip and pelvic x- rays followed as well as chest symmetric, negative. PT reports moderate assistance for bed mobility and minimal assistance for gait 8 feet with roller walker. OT reports modified independent with upper dressing, moderate jerry tance for lower dressing, bathing, toileting and minimal assistance for transfer. Previous functional history as elicited from patient: 74-year-old right-handed white female who is , lives and 2 floor home, retired. Describes independent with own cooking, laundry, driving, standing shower and gait without device. Dr. Bustos is regular doctor. History smoking and does drink alcohol. I Family history father was a smoker. Review of Systems Review of systems: ENT: Denies sneezes or discharge. Eyes: Denies discharge or photophobia. Cardiac: Denies chest pain or palpitation. Pulmonary: Denies cough or shortness of breath. Gastrointestinal: Denies nausea, emesis, constipation, diarrhea. Genitourinary: Denies discharge or frequency. Musculoskeletal: Right hip and proximal thigh discomfort. Neurologic: Denies motor or sensory change. Endocrine: Denies shakes or sweats. Oncology: Denies cancers. Dermatologic: Denies rash, itching, pruritus. ALLERGY/immunology: Denies sneezes, rashes. Past Medical History Past Medical History: Hypertension, Osteoarthritis (OA) Additional Past Medical History / Comment(s): fractured right knee cap History of Any Multi-Drug Resistant Organisms: None Reported Past Surgical History: Joint Replacement, Orthopedic Surgery Additional Past Surgical History / Comment(s): left ring finger surgery, right knee replaced 2018 R hip Past Anesthesia/Blood Transfusion Reactions: No Reported Reaction Past Psychological History: No Psychological Hx Reported Smoking Status: Former smoker Past Alcohol Use History: Daily Past Drug Use History: None Reported - Past Family History Mother Family Medical History: No Reported History Brother(s) Family Medical History: No Reported History Medications and Allergies Home Medications Medication Instructions Recorded Confirmed Type Hydrochlorothiazide [Hydrodiuril] 25 mg PO DAILY 09/28/18 06/11/19 History Meloxicam [Mobic] 15 mg PO DAILY 05/26/19 06/11/19 History Aspirin 325 mg PO BID #60 tab 06/01/19 06/11/19 Rx HYDROcodone/APAP 5-325MG [[place] 1 - 2 tab PO Q6HR PRN #56 tab 06/01/19 06/11/19 Rx 5-325] Sennosides [Senokot] 1 tab PO BID #60 tablet 06/01/19 06/11/19 Rx Benazepril HCl 20 mg PO DAILY 06/11/19 06/11/19 History NIFEdipine [Procardia XL] 60 mg PO DAILY 06/11/19 06/11/19 History Allergies Allergy/AdvReac Type Severity Reaction Status Date / Time No Known Allergies Allergy Verified 06/11/19 11:27 Physical Exam Vitals: Vital Signs Temp Pulse Resp BP Pulse Ox 06/15/19 07:30 98.4 F 99 17 132/80 97 06/15/19 00:55 99.4 F 79 16 129/76 95 06/14/19 20:00 98.8 F 93 18 122/71 96 06/14/19 15:18 99.3 F 106 H 19 136/70 95 Intake and Output 06/14/19 06/15/19 06/15/19 22:59 06:59 14:59 Intake Total 245 420 Output Total 400 Balance 245 20 Intake: Intake, IV Titration 245 420 Amount Sodium Chloride 0.9% 1, 245 420 000 ml @ 70 mls/hr IV . [id number] [facility] Rx#:[id number] Output: Urine 400 Other: Voiding Method Urinal # Voids 2 2 Skin: Good color, texture, turgor. General: Medium/muscular build and comfortable appearance. Head: Normocephalic, atraumatic. Eyes: Symmetric. Pupils equal round. Ears: Symmetric. Hearing within normal limits. Mouth: Clear. Neck: Supple. Carotid without bruit. Cardiac: Regular rate and rhythm. Lungs: Clear anteriorly and posteriorly. Abdomen: Soft active nontender. Extremities: Normal tone. Neurological: Mental status: Alert, cooperative, pleasant. Cranial nerves: Symmetric facial tone and trapezius. Motor: Active movement all 4 limbs but with giveaway weakness right hip and leg. Sensation: Intact throughout. DTRs: Symmetric and equal throughout. Mobility: Requires physical assistance for bedside transfer to Avis chair. Results CBC & Chem 7: 06/14/19 06:27 06/13/19 06:45 Assessment and Plan (1) Periprosthetic fracture around internal prosthetic right hip joint Current Visit: Yes Status: Acute Code(s): M97.01XA - PERIPROSTH FRACTURE AROUND INTERNAL PROSTH R HIP JT, INIT SNOMED Code(s): 950396976 Plan: Impression: 1. Walking ability. 2. Right femur periprosthetic fracture status post repair. 3. History of recent right ADENIKE prior to #2 above. 4. Hypertension. 5. Osteoarthritis. Constant plan: At this time PT and OT are ongoing. Note the patient was discharged to home with outpatient therapy recently. At this time believe patient may benefit from an inpatient rehab stay. Possibility discussed with patient.
--- NOTE | 2019-06-15 19:49 | PN ---
PROGRESS NOTE DATE OF SERVICE: 06/15/2019. This 74-year-old gentleman admitted with ORIF periprosthetic fracture is being closely monitored. Dr. Powers is evaluating the patient for inpatient rehab. The patient has some right leg swelling and ultrasound of the leg was negative for DVT. No chest pain. No palpitations. No fever. No shortness of breath. EXAM: Alert and oriented x3. Pulse 99. Blood pressure 132/80, respiration 17, temperature 98.4, pulse ox 97% on room air. HEENT: Conjunctivae normal. NECK: No JVD. CARDIOVASCULAR: S1, S2 muffled. RESPIRATION: Breath sounds diminished in the bases. No rhonchi. No crackles. Abdomen is soft, nontender. No mass palpable. LEGS: No edema. No swelling. CENTRAL NERVOUS SYSTEM: No focal deficits. LABS: WBC 10, hemoglobin is 8.7. ASSESSMENT: 1. Status post ORIF of the periprosthetic fracture of the right femur and revision of the femoral stem. 2. Right lower extremity swelling. Doppler negative for deep vein thrombosis. 3. Hypertension. 4. Hypovolemic hyponatremia. 5. Mild leukocytosis. 6. Degenerative joint disease. 7. Anemia normocytic, present on admission. 8. Increased WBC. RECOMMENDATIONS AND DISCUSSION: Recommend to continue current medications, monitoring, management and symptomatic treatment. Otherwise, at this time, I recommend continue the pain management. PT/OT evaluation. Possible inpatient rehab with Dr. Powers. Further recommendations to follow. MMODL / IJN: [id number] /
[2019-06-15] MEDS: SENNOSIDES-DOCUSATE SODIUM 1 EACH TAB PO SCH (21:28)
[2019-06-16] MEDS: HYDROcodone/APAP 7.5-325MG 1 EACH TAB PO PRN ×3 (06:59→20:33)
[2019-06-16] MEDS: PANTOPRAZOLE 40 MG TABLET PO SCH (06:59)
[2019-06-16] MEDS: RIVAROXABAN 10 MG TAB PO SCH (06:59)
[2019-06-16] MEDS: LISINOPRIL 20 MG TAB PO SCH (06:59)
[2019-06-16] MEDS: SENNOSIDES 8.6 MG TAB PO SCH ×2 (06:59→20:33)
[2019-06-16 08:02] LABS: Basophils # (A) 0.1 k/uL (0-0.2); Basophils % (A) 1 %; Eosinophils # (A) 0.4 k/uL (0-0.7); Eosinophils % (A) 4 %; HCT 25.8 % (39.0-53.0); HGB 8.5 gm/dL (13.0-17.5); Lymphocytes # (A) 1.2 k/uL (1.0-4.8); Lymphocytes % (A) 13 %; MCH 29.4 pg (25.0-35.0); MCV 89.2 fL (80.0-100.0); Mean Platelet Volume 6.8; Monocytes # (A) 0.5 k/uL (0-1.0); Monocytes % (A) 5 %; Neutrophils # (A) 7.1 k/uL (1.3-7.7); Neutrophils % (A) 76 %; Platelet Count 566 k/uL (150-450); RDW 12.7 % (11.5-15.5); WBC 9.4 k/uL (3.8-10.6)
--- NOTE | 2019-06-16 08:32 | P.PN ---
Subjective Progress Note Date: 06/16/19 This is a 74 year-old male who is status post ORIF of periprosthetic fracture of the right femur and revision of the femoral stem. This is postoperative day #3. Patient is seen and evaluated at bedside. Patient states that his pain is well- controlled and he has been up and walking with physical therapy. Patient denies any new complaints today. Patient denies any fever/chills, numbness, weakness, tingling, abdominal pain, shortness of breath or chest pain. Objective - Vital Signs Vital signs: Vital Signs Temp 98.5 F 06/16/19 07:13 Pulse 97 06/16/19 07:13 Resp 18 06/16/19 07:13 BP 150/80 06/16/19 07:13 Pulse Ox 93 L 06/16/19 07:13 Intake & Output 06/15/19 06/16/19 06/16/19 18:59 06:59 18:59 Intake Total 200 Output Total 200 Balance 200 -200 Intake: Oral 200 Output: Urine 200 Other: Voiding Method Urinal # Voids 400 2 - Exam Vital signs are stable. Patient is in no acute distress and is alert and oriented 3. Calf is soft and nontender to palpation. Dressing intact with mi ld serosanguineous drainage. Patient has full foot and ankle motion without pain or difficulty. Neurovascular status and circulatory status are intact. - Labs CBC & Chem 7: 06/16/19 07:04 06/13/19 06:45 Labs: Abnormal Lab Results - Last 24 Hours (Table) 06/16/19 Range/Units 07:04 RBC 2.90 L (4.30-5.90) m/uL Hgb 8.5 L (13.0-17.5) gm/dL Hct 25.8 L (39.0-53.0) % Plt Count 566 H (150-450) k/uL Assessment and Plan Assessment: Status post ORIF of periprosthetic fracture of the right femur and revision of the femoral stem. (1) Femur fracture, right Current Visit: Yes Status: Acute Code(s): S72.91XA - UNSP FRACTURE OF RIGHT FEMUR, INIT FOR CLOS FX SNOMED Code(s): 42712868 (2) Periprosthetic fracture around internal prosthetic right hip joint Current Visit: Yes Status: Acute Code(s): M97.01XA - PERIPROSTH FRACTURE AROUND INTERNAL PROSTH R HIP CHRISTIAN, INMARIA LUZ SNOMED Code(s): 245132607 Plan: Continue routine postop care and pain control. Continue hip precautions and use of abductor pillow for 6 weeks. Continue anticoagulation with Xarelto. 50% weightbearing as tolerated with a walker. Daily dressing changes. [place] to be removed 10-14 days postoperatively. Appreciate input from medicine. Likely discharge to rehab in the next 24-48 hours.
--- NOTE | 2019-06-16 09:10 | P.DS ---
Providers Date of admission: 06/11/19 12:44 Expected date of discharge: 06/16/19 Attending physician: Caden Rider Consults: 06/11/19 12:50 Consult Physician Stat Consulting Provider: Verito Kamara Consult Reason/Comments: L femur fracture, medical clearance, surgery thursday Do you want consulting provider notified?: Yes 06/15/19 09:59 Consult Physician Routine Consulting Provider: Landon Powers Consult Reason/Comments: evaluate for inpatient rehab Do you want consulting provider notified?: Yes Primary care physician: Eden Griffith - Discharge Diagnosis(es) (1) Femur fracture, right Current Visit: Yes Status: Acute (2) Periprosthetic fracture around internal prosthetic right hip joint Current Visit: Yes Status: Acute Hospital Course: This is a 74-year-old male who underwent right total hip arthroplasty on . Patient sustained a periprosthetic fracture of the right femur after a fall at home on 06/11/2019. The patient presented for evaluation in the emergency room and was admitted for further management. After discussion and consideration patient elects to proceed with ORIF of periprosthetic fracture right femur and revision of the femoral stem. The patient is seen preoperatively by Dr. Rider and medically cleared for surgery by internal medicine. Patient is admitted to [facility] on 06/11/2019 and ORIF of periprosthetic fracture right femur and revision of the femoral stem is performed on 06/13/2019. The procedure is performed without complication or sequelae. The patient is doing well postoperatively. Labs and vital signs are stable on day of discharge. On day of discharge patient's hip incision is healing well. There is minimal erythema. There is mild serosanguineous drainage noted at this time. There is mild soft tissue swelling to the hip and thigh. Patient has full foot and ankle motion without difficulty or pain. Calf is soft and nontender to palpation. Neurovascular status to the right lower extremity is intact. Patient is discharged to rehab in good condition. Opioid start talking form is reviewed and signed at patient bedside. Please see med rec for accurate list of home medications. Patient Condition at Discharge: Stable Plan - Discharge Summary Discharge Rx Participant: No New Discharge Prescriptions: New HYDROcodone/APAP 7.5-325MG [[place] 7.5-325] 1 - 2 tab PO Q6H PRN #56 tab PRN Reason: Pain Sennosides [Senokot] 1 tab PO BID #60 tablet Rivaroxaban [Xarelto] 10 mg PO DAILY #32 tab No Action Hydrochlorothiazide [Hydrodiuril] 25 mg PO DAILY Meloxicam [Mobic] 15 mg PO DAILY Aspirin 325 mg PO BID #60 tab HYDROcodone/APAP 5-325MG [[place] 5-325] 1 - 2 tab PO Q6HR PRN #56 tab PRN Reason: Pain Sennosides [Senokot] 1 tab PO BID #60 tablet NIFEdipine [Procardia XL] 60 mg PO DAILY Benazepril HCl 20 mg PO DAILY Discharge Medication List Hydrochlorothiazide [Hydrodiuril] 25 mg PO DAILY 09/28/18 [History] Meloxicam [Mobic] 15 mg PO DAILY 05/26/19 [History] Aspirin 325 mg PO BID #60 tab 06/01/19 [Rx] HYDROcodone/APAP 5-325MG [[place] 5-325] 1 - 2 tab PO Q6HR PRN #56 tab 06/01/19 [Rx] Sennosides [Senokot] 1 tab PO BID #60 tablet 06/01/19 [Rx] Benazepril HCl 20 mg PO DAILY 06/11/19 [History] NIFEdipine [Procardia XL] 60 mg PO DAILY 06/11/19 [History] HYDROcodone/APAP 7.5-325MG [[place] 7.5-325] 1 - 2 tab PO Q6H PRN #56 tab 06/16/19 [Rx] Rivaroxaban [Xarelto] 10 mg PO DAILY #32 tab 06/16/19 [Rx] Sennosides [Senokot] 1 tab PO BID #60 tablet 06/16/19 [Rx] Follow up Appointment(s)/Referral(s): Nacho Harmon MD [Primary Care Provider] - 1-2 days Caden Rider DO [Doctor of Osteopathic Medicine] - 2 Weeks Activity/Diet/Wound Care/Special Instructions: 50% weightbearing to the right lower extremity with a walker. Daily dressing changes. Gayle to be removed 10-14 days postoperatively. May shower after 24-48 hours if no drainage from the incision. Continue use of abductor pillow for 6 weeks while in bed. Recommend use of compression stockings daily for at least 2 weeks during the day to help prevent swelling and blood clots. May remove at night before sleeping. Please follow-up with [facility] in 2 weeks and call with any q uestions or concerns, . Discharge Disposition: HOME WITH HOME HEALTH SERVICES
[2019-06-16] MEDS: SODIUM CHLORIDE 0.9% 1,000 ML IV SCH ×2 (10:44→23:52)
[2019-06-16] MEDS: FERROUS SULFATE 325 MG TAB PO SCH (12:08)
--- NOTE | 2019-06-16 18:55 | PN ---
PROGRESS NOTE DATE OF SERVICE: 06/16/2019. This 74-year-old gentleman who was admitted after ORIF and periprosthetic fracture, is being closely monitored. Inpatient rehab is being considered as a possibility. No chest pain. No palpitations. No fever. PHYSICAL EXAM: Alert and oriented times three. Pulse 97, blood pressure 150/80, respiration 18, temperature 98.4, pulse ox 93 percent on room air. HEENT is conjunctivae normal. NECK: No JVD. CARDIOVASCULAR: S1, S2 muffled. RESPIRATIONS: Breath sounds diminished in the bases. No rhonchi. No crackles. ABDOMEN: Soft, nontender. No mass palpable. LEGS: Status post surgery. NERVOUS SYSTEM: Higher functions as mentioned earlier. Moves all four limbs. No focal motor or sensory deficits. LYMPHATICS: No lymph nodes palpable in the neck, axillae or groin. SKIN: No ulcer. No rashes. No bleeding. JOINTS: No active deforming arthropathy. LABS: WBC 9.2, hemoglobin is 8.5. UA noted. ASSESSMENT: 1. Status post ORIF and the periprosthetic fracture of the right femur and revision of the femoral system. 2. Right lower extremity swelling. 3. Doppler negative for deep vein thrombosis. 4. Hypertension. 5. Hypovolemic hyponatremia. 6. Mild leukocytosis. 7. Degenerative joint disease. 8. Anemia normocytic, present on admission, probably anemia of chronic disease. 9. Increased WBC. RECOMMENDATIONS AND DISCUSSION: Recommend to continue current medications, continue with monitoring, symptomatic treatment. Otherwise, at this time, continue with monitoring. Iron supplementation. Pain medications. Closely monitor with inpatient rehab. Further recommendations to follow. MMODL / IJN: [id number] /
[2019-06-16] MEDS: SENNOSIDES-DOCUSATE SODIUM 1 EACH TAB PO SCH (20:33)
[2019-06-17] MEDS: HYDROcodone/APAP 7.5-325MG 1 EACH TAB PO PRN ×2 (05:03→10:09)
[2019-06-17 07:27] VITALS: BP 132/79; PULSE 91; RESP 18; TEMP 98.8
[2019-06-17] MEDS: PANTOPRAZOLE 40 MG TABLET PO SCH (07:47)
[2019-06-17] MEDS: SENNOSIDES 8.6 MG TAB PO SCH (07:48)
[2019-06-17] MEDS: RIVAROXABAN 10 MG TAB PO SCH (07:48)
[2019-06-17] MEDS: FERROUS SULFATE 325 MG TAB PO SCH (07:48)
[2019-06-17] MEDS: LISINOPRIL 20 MG TAB PO SCH (07:48)
--- NOTE | 2019-06-17 09:05 | CDI ---
Documentation Clarification Form Date: 06/16/2019 5:12:00 PM From: Maribel Richardson RN, CCDS Admit Date: 06/11/2019 12:44:00 PM Patient Name: Loco Martinez Visit Number: [id number] Discharge Date: ATTENTION: The Clinical Documentation Specialists (CDI) and [facility] Coding Staff appreciate your assistance in clarifying documentation. Please respond to the clarification below the line at the bottom and electronically sign. The CDI & [facility] Coding staff will review the response and follow-up if needed. Please note: Queries are made part of the Legal Health Record. If you have any questions, please contact the author of this message via ITS. Dr. Shyann oRbles A diagnosis of normocytic anemia lacks specificity to accurately reflect your patients severity of condition and clarification is needed. History/Risk Factors: Right hip replacement 1 week ago, Hypertension Clinical indicators: 74-year-old female who present after a fall and complains of right hip pain, with replacement 1 week ago. She had an Open reduction and internal fixation of the periprosthetic fracture of the right femur and revision of the femoral stem on 06/13/19. Estimated blood loss per operative note 250 mls. Hemoglobin: 06/11/18 12.9 06/14/19 Hemoglobin 8.7 06/16/19 Hemoglobin 8.5 Hematocrit: 06/11/19 37.6 06/14/19 Hematocrit 26.6 06/16/19 Hematocrit 25.8 Treatment: Monitor CBC Feosol PO QD In order to capture the severity of condition, please clarify the type of anemia and etiology if known: Acute blood loss anemia (expected or unexpected) Chronic blood loss anemia Iron deficiency anemia Unable to determine Other, please specify (Last Revision: May 2017) Unable to determine MTDD
== END 2019-06-17 11:28 | DRG 467 ==
LOC: EC 10:41 → 4SSUR 12:44
PROVIDERS: ADMIT Orthopaedic Surgery; ATTEND Orthopaedic Surgery
PROC: 0QS604Z Reposition Right Upper Femur with Internal Fixation Device, Open Approach (ICD-10-PCS; principal; 2019-06-13 10:05)
PROC: 0SRR0JA Replacement of Right Hip Joint, Femoral Surface with Synthetic Substitute, Uncemented, Open Approach (ICD-10-PCS; principal; 2019-06-13 10:05)
PROC: 0SPR0JZ Removal of Synthetic Substitute from Right Hip Joint, Femoral Surface, Open Approach (ICD-10-PCS; principal; 2019-06-13 10:05)
DX: S72.8X1A Other fracture of right femur, initial encounter for closed fracture (principal); M97.01XA Periprosthetic fracture around internal prosthetic right hip joint, initial encounter; E87.1 Hypo-osmolality and hyponatremia; I10 Essential (primary) hypertension; M19.90 Unspecified osteoarthritis, unspecified site; Z96.651 Presence of right artificial knee joint; Z96.641 Presence of right artificial hip joint; E86.1 Hypovolemia; M21.70 Unequal limb length (acquired), unspecified site; T50.2X5A Adverse effect of carbonic-anhydrase inhibitors, benzothiadiazides and other diuretics, initial encounter; D72.829 Elevated white blood cell count, unspecified; W10.9XXA Fall (on) (from) unspecified stairs and steps, initial encounter; D63.8 Anemia in other chronic diseases classified elsewhere; Y93.01 Activity, walking, marching and hiking; Z79.1 Long term (current) use of non-steroidal anti-inflammatories (NSAID); Z79.899 Other long term (current) drug therapy; Z79.82 Long term (current) use of aspirin; Z87.891 Personal history of nicotine dependence
CPT/HCPCS: 36415; 71045; 73501; 73502; 80048; 80053; 81001; 85025; 85610; 85730; 96361; 96374; 96375; 96376; 99285

== ENCOUNTER → 2020-05-02 | Outpatient (CLI) | payer MEDICARE ==
--- NOTE | 2020-05-02 09:51 | US ---
EXAMINATION TYPE: US venous doppler duplex LE LT DATE OF EXAM: 05/02/2020 9:38 AM COMPARISON: NONE CLINICAL HISTORY: M79.662 Pain in left leg, R22.42 Swelling left leg. SIDE PERFORMED: Left TECHNIQUE: The lower extremity deep venous system is examined utilizing real time linear array sonog garfield with graded compression, doppler sonography and color-flow sonography. VESSELS IMAGED: External Iliac Vein (EIV) Common Femoral Vein Deep Femoral Vein Greater Saphenous Vein * Femoral Vein Popliteal Vein Small Saphenous Vein * Proximal Calf Veins (* superficial vessels) Left Leg: Negative for DVT IMPRESSION: 1. Left lower extremity ultrasound negative for deep venous thrombosis
== END | disposition home or self-care (01) ==
LOC: RADUSWWP 09:09
PROVIDERS: ATTEND Internal Medicine
DX: M79.662 Pain in left lower leg (principal); R22.42 Localized swelling, mass and lump, left lower limb

== ENCOUNTER → 2020-09-06 | Outpatient (CLI) | payer MEDICARE ==
[2020-09-06 09:06] LABS: Basophils % (A) 1 %; Eosinophils # (A) 0.2 k/uL (0-0.7); Eosinophils % (A) 3 %; HCT 45.3 % (39.0-53.0); HGB 14.6 gm/dL (13.0-17.5); Lymphocytes % (A) 32 %; MCH 28.3 pg (25.0-35.0); MCHC 32.3 g/dL (31.0-37.0); MCV 87.6 fL (80.0-100.0); Mean Platelet Volume 7.3; Monocytes # (A) 0.3 k/uL (0-1.0); Monocytes % (A) 5 %; Neutrophils # (A) 3.5 k/uL (1.3-7.7); Neutrophils % (A) 57 %; Platelet Count 311 k/uL (150-450); RBC 5.17 m/uL (4.30-5.90); RDW 13.5 % (11.5-15.5); WBC 6.2 k/uL (3.8-10.6)
[2020-09-06 16:46] LABS: Albumin 4.7 g/dL (3.80-4.90); Albumin/Globulin Ratio 2.14 (1.60-3.17); Anion Gap 13.1 mmol/L (4.00-12.00); Calcium 9.5 mg/dL (8.7-10.3); Carbon Dioxide 23.9 mmol/L (21.6-31.8); Globulin 2.2 g/dL (1.6-3.3); Non-African American GFR(CKD) 73.3 (60.0-200.0); Potassium 4.9 mmol/L (3.5-5.5); Total Bilirubin 0.7 mg/dL (0.3-1.2); Total Protein 6.9 g/dL (6.2-8.2)
== END | disposition home or self-care (01) ==
LOC: LABWHC1 08:54
PROVIDERS: ATTEND Internal Medicine
DX: I13.0 Hypertensive heart and chronic kidney disease with heart failure and stage 1 through stage 4 chronic kidney disease, or unspecified chronic kidney disease (principal); I50.9 Heart failure, unspecified; N18.9 Chronic kidney disease, unspecified; R22.43 Localized swelling, mass and lump, lower limb, bilateral
CPT/HCPCS: 36415; 80053; 83880; 85025

== ENCOUNTER → 2023-02-19 | Outpatient (CLI) | payer MEDICARE ==
--- NOTE | 2023-02-19 09:41 | US ---
EXAMINATION TYPE: US Aorta Screening DATE OF EXAM: 02/19/2023 COMPARISON: NONE CLINICAL INDICATION: Male, 77 years old with history of Z13.6 ENCOUNTER FOR SCREENING FOR CARDIOVASCU LAR D; screening TECHNIQUE: Multiple sonographic images of the abdominal aorta are obtained. FINDINGS: EXAM MEASUREMENTS: Abdominal Aorta: Proximal: 2.1x2.3 Mid: 2.1x2.1 Distal: 2.0x2.0 Bifurcation: obscured by bowel gas SOCIAL [employer]URITY BENEFITS INTERVIEWER NOTES: Exam technically difficult due to large body habitus, pt. difficulty holding inspi ration No visualized abdominal aortic aneurysm. IMPRESSION: Limited examination due to patient's body habitus and overlying bowel gas. No visualized abdominal aortic aneurysm. The bifurcation is obscured by overlying bowel gas.
== END | disposition home or self-care (01) ==
LOC: RADUSWWP 08:46
PROVIDERS: ATTEND Family Medicine
DX: Z13.6 Encounter for screening for cardiovascular disorders (principal)
CPT/HCPCS: 76706